=== PATIENT | female | born 1945 | race Caucasian/White ===

== ENCOUNTER 2023-08-27 11:04 | Inpatient (IN) | payer OTHER, SELFPAY ==
[2023-08-27] VITALS (12 sets, daily range): BP systolic 132–165; BP diastolic 58–79; BMI 21.9; BMI 22.9
--- NOTE | 2023-08-27 08:54 | ED.GENMED ---
History of Present Illness
General
Chief Complaint: Rectal Bleeding
Source: patient and ambulance crew
Exam Limitations: none
Time Seen by Provider: 08/27/23 08:52
Nursing documentation reviewed up to this point in time: agreed with
Travel History
Have you had any contact with someone who has COVID-19?: No
Do you have any symptoms of coronavirus? Fever > 100 degrees, chills, cough, shortness of breath, sore throat, loss of taste or smell, muscle aches, or headache?: No
History of Present Illness
History of Present Illness:
78-year-old female presents emergency department complaining of lower abdominal cramping, and dark maroon stool. She has a history of diverticular bleed. She does not take any blood thinners except for aspirin 81 mg.
Past History
Past History
ED Past Medical History: Arrthythmia, CHF, HTN and Other (Diverticular bleed)
ED Past Surgical History: Cardiac (watchman), Cholecystectomy and Orthopedic (left elbow, right rotator cuff, bilateral hip replacement)
Social History
Tobacco: Non-smoker
Alcohol: None
Drug: None
Employment: Retired
Review of Systems
Review of Systems
Allergies reviewed?: Yes
All Other Systems: Not applicable
Constitutional: Reports no symptoms
EENT: Reports no symptoms
Respiratory: Reports no symptoms
Cardiac: Reports no symptoms
ABD/GI: Reports bloody stools and black stools
: Reports no symptoms
Musculoskeletal: Reports no symptoms
Skin: Reports no symptoms
Neurological: Reports no symptoms
Endocrine: Reports no symptoms
Hematologic/Lymphatic: Reports no symptoms
Psychiatric: Reports no symptoms
Phy Exam
Physical Exam
Physical Exam:
Physical Exam
General: no apparent distress, not acutely ill
Neck: supple. no meningeal signs. normal posterior pharynx
Heart: s1/s2 regular rate and rhythm, no murmur. equal radial
pulses.
HEENT: Pupils equal round reactive to light, EOMI
Lungs: no acute respiratory distress. clear bilaterally
Abdomen: normal bowel sounds. not tender. no CVAT, rectal exam shows dark maroon blood
Neuro: alert and oriented. no focal neurological deficits cranial nerves II through XII intact
Skin: no rash
Psychiatric: well kept. interactive and cooperative
Extremities: no edema. no calf tenderness. negative homans. good distal pulses
Course
Orders/Labs/Results
Orders:
Orders
08/27/23 08:51
EKG [Electrocardiogram (*1)] Urgent
Reason for Study: Fatigue / Weakness
EKG- Treatment ONCE
08/27/23 08:52
Cardiac Monitoring- Treatment ONCE
EKG- Treatment ONCE
IV Insert/Care/Rem.- Treatment PRN
08/27/23 09:02
Type+Screen Urgent
Complete Blood Count/With Diff Urgent
Comprehensive Metabolic Panel Urgent
Ferritin Urgent
Comment: ADD ON
Folate Urgent
Comment: ADD ON
Iron Urgent
Comment: ADD ON
PTT Urgent
Prothrombin Time Urgent
Total Iron Binding Urgent
Comment: ADD ON
Transferrin [S] Urgent
Comment: ADD ON
Vitamin B12 Urgent
Comment: ADD ON
08/27/23 10:44
Admit/Transfer Patient As Directed
Co-Sign Provider:
Level of Care: Inpatient admission
Assign to:: Telemetry
Physician / Group: anthony castorena
Diagnosis: Acute GI bleed
Reason for Telemetry: Arrhythmia
Date to Stop Telemetry: 08/30/23
Time to Stop Telemetry: 11:00
Reason for Hospitalization: Acute GI bleed
Expected length of stay greater than two midnights?: Yes
ELOS- Estimated Length of Stay in days: 3
I certify the patient meets the requirements for IP care: Yes
08/27/23 10:49
Code Status As Directed
Resuscitation Status: Full Code
08/27/23 14:29
Furosemide [Lasix] 20 mg PO DAILYPRN PRN
Pantoprazole [Protonix IV] 40 mg IV BID
08/27/23 14:29
Consult Gastroenterology [GASTROINTESTINAL CONSULT] Routine
Consulting Provider: Constanza Medel
Was physician already notified: Yes
Activity As Directed
Activity Level: As Tolerated
Intake/ Output As Directed
Frequency: Per unit guidelines
Sequential Compression Device [Pneumatic Compression Sleeves] As Directed
Type: Knee high
Vital Signs As Directed
Frequency: Per unit guidelines
Weight As Directed
Frequency: Daily
Pulse Ox/spot Check [RESP] Routine
Quantity: 1
DX Deep Vein Thrombosis Video Routine
08/27/23 20:00
Acetaminophen [Tylenol] 1,000 mg PO BID
cyclosporine-chondroit sulf A [Cyclosporine in Klarity] 1 drop OPHTH BID
08/27/23 22:00
Losartan [Cozaar] 25 mg PO HS
08/28/23 06:00
Basic Metabolic Panel IN AM
Complete Blood Count/With Diff IN AM
08/28/23 08:00
MetroNIDAZOLE (NON-FORM) [Metrocream 0.75% Cream] 1 applic TOPICAL DAILY
08/28/23 10:44
clobetasol 1 applic TOPICAL MOFR
08/28/23 18:00
Rosuvastatin Calcium [Crestor] 5 mg PO Q48H
08/29/23 06:00
Basic Metabolic Panel IN AM
Complete Blood Count/With Diff IN AM
08/30/23 06:00
Basic Metabolic Panel IN AM
Complete Blood Count/With Diff IN AM
08/30/23 11:00
DC Protocol for Telemetry ONCE
08/31/23 06:00
Basic Metabolic Panel IN AM
Complete Blood Count/With Diff IN AM
09/01/23 06:00
Basic Metabolic Panel IN AM
Complete Blood Count/With Diff IN AM
Abnormal Lab Results
08/27/23
09:02
RBC 3.39 L 10^6/uL
(4.20-5.40)
Hgb 11.5 L g/dL
(12.0-16.0)
Hct 34.2 L %
(37.0-47.0)
MCV 100.9 H fL
(81.0-99.0)
MCH 33.9 H pg
(27.0-31.0)
Monocytes % 10.2 H %
(1.7-9.3)
Chloride 108 H mmol/L
(98-107)
BUN 26 H mg/dl
(7-17)
08/27/23 09:02
08/27/23 09:02
Vital Signs
Initial and Last Documented VS:
Initial Vital Signs
Temp Pulse Resp Pulse Ox
98.8 F 79 18 97
08/27/23 08:45 08/27/23 08:45 08/27/23 08:45 08/27/23 08:45
Last Documented Vital Signs
Temp Pulse Resp BP Pulse Ox
98.8 F 76 18 152/69 96
08/27/23 08:45 08/27/23 15:00 08/27/23 15:00 08/27/23 15:00 08/27/23 15:00
MDM/Problems Addressed
Differential Diagnosis Includes:
GI bleed, hemorrhoids
MDM/Problems Addressed:
78 yo female with GI bleed, vital signs stable, will admit for further evaluation.
Chronic conditions affecting care: Neurological disorder (prior cva) and Other (prior GI bleed)
Acute Exacerbation and/or Progression of Chronic Illness: Other (prior GI bleed)
*Pulse Oximetry
Patient hypoxic: no
*EKG
Interpreted by ED Provider?: Yes
EKG Intrepretation Date: 08/27/23
EKG Intrepretation Time: 08:53
Interpretation: abnormal
Comparison EKG: no changes
Heart Rate: 76
Rate: normal
Rhythm: atrial flutter
Stuart: normal axis
Interval: normal interval
QRS Pattern: right bundle branch block
Ischemia: non-specific ST changes
*Nuisance Wildlife Control Operator Interpretation
Rate: normal
Interpretation: abnormal
Heart Rate: 78
Rhythm: atrial flutter
*Critical Care Note
Total Time (30-74mins, 75-104mins- exclusive of procedures): Not Applicable
Patient Management
Social determinants of health affecting care: Living situation and Strong social support
Discussion with other providers: Hospitalist
Escalation/DeEscalation of care consider admission/obs:
admit indicated
ED Attending Note
-
Portions of this chart may have been created with voice recognition software.� Occasional wrong word or��sound alike� substitutions may have occurred due to the inherent limitations of voice recognition software.
Discharge Plan
Departure
Patient Disposition: Admit
Date of Disposition: 08/27/23
Time of Disposition: 09:32
Admit to: Telemetry
Presentation/result/management discussed w/ accepting MD/DO: Hospitalist
Patient with high blood pressure during this ER visit?: Yes
Condition: Good
Discharge Problem:
Acute GI bleeding
Interventions
Interventions:
*Risk Screen - Suicide Last Done: 08/27/23 08:45
*General Assessment Last Done: 08/27/23 08:45
*Neglect/Abuse Screening Last Done: 08/27/23 08:45
ED- Fall Risk Assessment Last Done: 08/27/23 08:45
*ED COVID-19 Vaccine History Last Done: 08/27/23 08:45
JA-Bywwbb-Yaofkalkxd Assessment Last Done: 08/27/23 08:45
ED- Cardiac Assessment Last Done: 08/27/23 08:45
ED- Pulmonary Assessment Last Done: 08/27/23 08:45
[2023-08-27 09:14] LABS: % Basophils 0.8 % (0-2); % Eosinophils 2.4 % (0-6); % Immature Granulocytes 0.2 % (0-0.5); % Lymphocytes 31.4 % (20.5-51.1); % Monocytes 10.2 % (1.7-9.3); Absolute Eosinophils 0.1 10^3/uL (0-0.7); Absolute Lymphocytes 1.5 10^3/uL (1.2-3.4); Absolute Monocytes 0.5 10^3/uL (0.1-0.6); Absolute Neutrophils 2.7 10^3/uL (1.4-6.5); Hematocrit 34.2 % (37.0-47.0); Hemoglobin 11.5 g/dL (12.0-16.0); Mean Corp Hgb Conc. 33.6 g/dL (33.0-37.0); Mean Corpuscular Hgb 33.9 pg (27.0-31.0); Mean Corpuscular Volume 100.9 fL (81.0-99.0); Mean Platelet Volume 8.9 fL (7.4-10.4); Nucleated Red Blood Cells % 0 %; Platelet Count 139 10^3/uL (130-400); Red Blood Cell Count 3.39 10^6/uL (4.20-5.40); White Blood Cell Count 4.9 10^3/uL (4.8-10.8)
[2023-08-27 09:28] LABS: APTT 29.1 Sec (23.4-35.0); INR 1.11; PT 14.4 Sec (11.4-14.6)
[2023-08-27 09:31] LABS: ALT (SGPT) 22 U/L (0-35); AST (SGOT) 30 U/L (14-36); Alkaline Phosphatase 126 U/L (38-126); Blood Urea Nitrogen 26 mg/dl (7-17); Calcium 9.7 mg/dl (8.4-10.2); Carbon Dioxide 29 mmol/L (22-30); Chloride 108 mmol/L (98-107); Estimated Creatinine Clearance 65 ml/min; Glucose 95 mg/dl (70-99); Sodium 139 mmol/L (135-145); Total Bilirubin 0.9 mg/dl (0.2-1.3); Total Protein 6.5 g/dl (6.3-8.2); eGFR > 60.00
--- NOTE | 2023-08-27 10:52 | HPS.HSE ---
Family Physician
-
Family Physician: Jeramie Spring
Chief Complaint
-
Rectal bleeding
History of Present Illness
78-year-old female with past medical history of pulmonary atrial fibrillation, CHF, TIA, hypertension, previous GI bleed, essential hypertension, status post Watchman device came to the hospital with GI bleeding that started today. Patient was
admitted here last year with diverticular bleed. Currently complaining of dizziness and passing black and dark burgundy stool. Denies any abdominal pain. Denies any nausea, vomiting. Denies any chest pain, shortness of breath.
Medical History
Past Medical History
Past Medical History: Reports Arrhythmia (Pulm atrial fibrillation), CHF, CVA, HTN, Hypercholesterolemia and Other (GI bleed)
Past Surgical History: Reports Cardiac (Watchman device, a flutter ablation), Cholecystectomy, Orthopedic (Bilateral hip replacement) and Other (Cataract surgery)
Social History
Tobacco: Former Smoker
Alcohol: None
Drug: None
Family History
Family History: Not pertinent
Allergies / Home Medications
Allergies reflects when Allergies were last updated in [employer].
Home Medications with original date entered in [employer]
Allergy/Medication List:
Allergies
Allergy/AdvReac Type Severity Reaction Status Date / Time
alendronate sodium Allergy GI bleed Verified 08/27/23 09:05
[From Fosamax]
simvastatin [From Zocor] Allergy Unknown Verified 08/27/23 09:05
Home Medications
acetaminophen 500 mg tablet 1,000 mg PO BID Pain 01/08/22
cyclosporine 0.1 %-chondroitin sulfate A sodium 0.25 % eye drops (Cyclosporine in Klarity) 1 drp ophthalmic (eye) BID Eye condition 01/08/22
pantoprazole 40 mg tablet,delayed release 40 mg PO DAILY Gastrointestinal issue 01/08/22
rosuvastatin 5 mg tablet 5 mg PO Q48H@1800 High cholesterol 01/08/22
metronidazole 0.75 % topical cream 1 applic topical DAILY FACE ROSACEA 09/06/22
aspirin 81 mg chewable tablet 81 mg PO DAILY 08/27/23
clobetasol 0.05 % topical ointment 1 applic topical MOFR VUVLAR RASH 08/27/23
furosemide 20 mg tablet 20 mg PO DAILYPRN PRN weight gain, leg swelling 08/27/23
losartan 25 mg tablet 25 mg PO HS 08/27/23
Review of Systems
-
History Source: Patient
A 12 point ROS was completed and negative except as noted: Yes
Abdomen/GI: Reports Black Stools
Physical Exam
Vital Signs
Vital Signs
Temp Pulse Resp BP Pulse Ox
98.8 F 64 13 154/68 94
08/27/23 08:45 08/27/23 10:00 08/27/23 10:00 08/27/23 10:00 08/27/23 10:00
Physical Exam
General: Well Nourished and No Apparent Distress
HEENT: Anicteric and Moist mucous membranes
Respiratory: Clear and Non Labored Respirations; No Wheezes
Cardiac: S1/S2 and Irregular Rhythm
Breast: Deferred by me
GI: Soft, Non Tender and Non Distended
Genito-urinary: No Jon
Musculoskeletal: No Edema
Neuro: Awake, Alert, Oriented and AO x 3
Psych: Calm and Intact Judgment/Insight
Laboratory Results
-
08/27/23 09:02
08/27/23 09:02
Laboratory Results
PT 14.4 Sec (11.4-14.6) 08/27/23 09:02
INR 1.11 08/27/23 09:02
APTT 29.1 Sec (23.4-35.0) 08/27/23 09:02
Total Bilirubin 0.9 mg/dl (0.2-1.3) 08/27/23 09:02
AST 30 U/L (14-36) 08/27/23 09:02
ALT 22 U/L (0-35) 08/27/23 09:02
Alkaline Phosphatase 126 U/L (38-126) 08/27/23 09:02
Data Reviewed
-
Lab Data: Labs Reviewed by me and Discussed with Patient
Impression/Plan
-
Acute GI bleed
History of GI bleed
Trend hemoglobin
Blood consented and placed in chart
Transfuse hemoglobin less than 7
Consult GI
PPI
N.p.o.
Permanent atrial fibrillation status post Watchman device
Not on anticoagulation due to history of GI bleed
On baby aspirin, hold
Not on any rate control
History of hypertension
Continue losartan
History of cirrhosis
Follow-up with GI outpatient
Hyperlipidemia
Continue statin
hx of TIA
DVTppx
SCD's
Full code
--- NOTE | 2023-08-27 11:01 | CON.GI ---
Addendum entered and electronically signed by Constanza Medel MD 08/27/23 14:52:
I saw and examined the patient.
The ONLINE USER EXPERIENCE STRATEGIST's note was reviewed and I agree with the note.
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
angioectasia but her bleeding did resolve and so did not need endoscopic procedures performed here. She has been seeing Dr. Mai and then subsequently Dr. Montalvo and and her last colonoscopy she says was in 2021 which was unremarkable with
Dr. Stahl and she then had a capsule endoscopy recently with Dr. Marks and she says that that showed old blood in the stomach she says her last endoscopy was quite a few years ago. She was also noted to have cirrhosis on prior imaging study and was
told to follow-up with her outpatient GI for further workup.
Assessment and plan 1 recurrent GI bleed this time she presents with black stool with subsequently with some red blood will need to rule out upper GI bleed possibly from gastric or small bowel angioectasias she has a slightly elevated BUN will
schedule her for endoscopy and if that is unremarkable then will need a repeat colonoscopy for possible colonic angioectasia as noted on CTA in the past there was questionable cecal AVM also. Hemoglobin is relatively stable currently she was only
on aspirin 81 mg prior to admission she is status post Watchman procedure. She does have prior history of diverticular bleed also.
2. Cirrhosis noted on prior imaging follow-up with as outpatient for further workup
Original Note:
Consultation
-
Date/Time Consultation Requested: 08/27/23 1100
Date/Time Consultation Performed: 08/27/23 1100
Requesting Provider: Yaya Rodriguez MD
Performing Provider: BHANU Beaulieu, Constanza Medel MD
Reason for Consultation: GI bleed
Medical History
Chief Complaint / HPI
Chief Complaint: GI bleed
History of Present Illness:
Pt is an 78yo presents with hx afib with prior ablation, watchman off anticoagulation, TIA, HTN, and spinal stenosis, CT with noted cirrhosis. She also has hx multiple GI bleeds. 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
cauterization around 2014. Colonoscopy Dr. Montalvo with diverticulosis. Capsule incomplete and did not pass with HH. She was then admitted to in 2022 with diverticular bleed vs possible small focal AVM gastric wall vs IC valve also noted
change of cirrhosis. She states after admission she did she Dr. Marks in 2022 with abnormality in stomach. She now present with onset of dizziness and passing black and dark burgundy stool with some formed stool. She had several episode at home
and presents to ER for evaluation. On admission hbg 11.5 with dark maroon stool on rectal exam in ER.
Pt otherwise admits to occasional constipation but denies dysphagia, GERD, nausea, vomiting, abdominal pain, diarrhea or bright red blood.
Past Medical History
Past Medical History: Arrhythmias (afib, bradicardia ), CHF, CVA (prior TIA), HTN and Other (diverticular bleed, diverticulosis, HH with incomplete capusule, possible AVM gastric and IC vlave on CT 2022, hx prior gastric angioectasia with
cauterization by Dr. Mai in past, cirrhosis spinal stenosis, Lumbar DDD, possible LING, cirrhosis per CT)
Past Surgical History: Cardiac (watchman, aflutter ablation), Cholecystectomy, Orthopedic (elbow, right rotator cuff, b/l hip replacement ) and Other (cararact surgery)
Social History
Tobacco: Former Smoker
Alcohol: Other (prior social )
Drug: None
Living: Alone
Employment: Retired
Family History
Family History: Other (mother with colon CA in mother )
Allergies / Home Medications
Allergy/AdvReac Type Severity Reaction Status Date / Time
alendronate sodium Allergy GI bleed Verified 08/27/23 09:05
[From Fosamax]
simvastatin [From Zocor] Allergy Unknown Verified 08/27/23 09:05
Medication Instructions Recorded
acetaminophen 500 mg tablet 1,000 mg PO BID Pain 01/08/22
cyclosporine 0.1 %-chondroitin 1 drp ophthalmic (eye) BID Eye 01/08/22
sulfate A sodium 0.25 % eye drops condition
(Cyclosporine in Klarity)
pantoprazole 40 mg tablet,delayed 40 mg PO DAILY Gastrointestinal 01/08/22
release issue
rosuvastatin 5 mg tablet 5 mg PO Q48H@1800 High cholesterol 01/08/22
metronidazole 0.75 % topical cream 1 applic topical DAILY FACE ROSACEA 09/06/22
aspirin 81 mg chewable tablet 81 mg PO DAILY 08/27/23
clobetasol 0.05 % topical ointment 1 applic topical MOFR VUVLAR RASH 08/27/23
furosemide 20 mg tablet 20 mg PO DAILYPRN PRN weight gain, 08/27/23
leg swelling
losartan 25 mg tablet 25 mg PO HS 08/27/23
Review of Systems
-
History Source: Patient
Constitutional: Reports No Symptoms
EENT: Reports No Symptoms
Respiratory: Reports No Symptoms
Cardiac: Reports No Symptoms
Abdomen/GI: Reports Bloody Stools (dark burgundy/black stool)
: Reports No Symptoms
Musculoskeletal: Reports No Symptoms
Skin: Reports No Symptoms
Neurological: Reports No Symptoms
Endocrine: Reports No Symptoms
Hematologic/Lymphatic: Reports Bleeding
Vital Signs
Temp Pulse Resp BP Pulse Ox
98.8 F 64 13 154/68 94
08/27/23 08:45 08/27/23 10:00 08/27/23 10:00 08/27/23 10:00 08/27/23 10:00
Physical Exam
Exam
General: Well Developed, Well Nourished and No Apparent Distress
HEENT: Normocephalic and Anicteric
Respiratory: Clear
Cardiac: Regular Rhythm
GI: Soft, Non Tender and Non Distended
Rectal: Other (burgundy stool per ER)
Musculoskeletal: No Clubbing and No Cyanosis
Skin: Warm and Dry
Neuro: Awake, Alert and AO x 3
Psych: Calm
Results
WBC 4.9 10^3/uL (4.8-10.8) 08/27/23 09:02
Hgb 11.5 g/dL (12.0-16.0) L 08/27/23 09:02
Hct 34.2 % (37.0-47.0) L 08/27/23 09:02
MCV 100.9 fL (81.0-99.0) H 08/27/23 09:02
Plt Count 139 10^3/uL (130-400) 08/27/23 09:02
Absolute Neuts (auto) 2.7 10^3/uL (1.4-6.5) 08/27/23 09:02
PT 14.4 Sec (11.4-14.6) 08/27/23 09:02
INR 1.11 08/27/23 09:02
APTT 29.1 Sec (23.4-35.0) 08/27/23 09:02
Sodium 139 mmol/L (135-145) 08/27/23 09:02
Potassium 4.0 mmol/L (3.5-5.1) 08/27/23 09:02
Chloride 108 mmol/L (98-107) H 08/27/23 09:02
Carbon Dioxide 29 mmol/L (22-30) 08/27/23 09:02
BUN 26 mg/dl (7-17) H 08/27/23 09:02
Creatinine 0.6 mg/dL (0.6-1.0) 08/27/23 09:02
Calcium 9.7 mg/dl (8.4-10.2) 08/27/23 09:02
Total Bilirubin 0.9 mg/dl (0.2-1.3) 02/29/24 09:02
AST 30 U/L (14-36) 08/27/23 09:02
ALT 22 U/L (0-35) 08/27/23 09:02
Alkaline Phosphatase 126 U/L (38-126) 08/27/23 09:02
Diagnostic Image Results:
09/07/22 CT P/P angio
No acute intraluminal gastrointestinal hemorrhage. Reviewed with Dr. Pugh at 8:30 AM on 09/07/2022.
Subtle nodularity of the hepatic surface, which could suggest the possibility of cirrhosis. Clinical correlation recommended.
Prior cholecystectomy. Likely prominent common bile duct, likely related to prior cholecystectomy and patient age.
Diverticulosis without acute diverticulitis.
Localized rounded prominence along left lateral vaginal margin are nonspecific. Possibly complex Bartholin's gland cyst.
Upon further review, there is a cluster of enhancing vascular structures involving the posterior-medial gastric wall in the fundal region (image 19 through 25 series 501). These raise the possibility of small focal AVM versus angiodysplasia.
Small enhancing vessel associated with the cecum adjacent to the ileocecal valve (image 75 series 501). Cannot exclude angiodysplasia.
Prior GI Procedures:
EGD: with Dr. Mai with gastric AVM cauterization around 2014.
Colonoscopy: Dr. Montalvo with diverticulosis
RENZO capsule did not pass around [address] Marks 09/2022 capsule - stomach old blood no masses, polyps, colon visualized normal
Assessment / Plan
-
Pt is an 78yo presents with hx afib with prior ablation, watchman off anticoagulation, TIA, HTN, and spinal stenosis, CT with noted cirrhosis. She also has hx multiple GI bleeds. 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
cauterization around 2014. Colonoscopy Dr. Montalvo with diverticulosis. Capsule incomplete and did not pass with . She was then admitted to in 2022 with diverticular bleed vs possible small focal AVM gastric wall vs IC valve also noted
change of cirrhosis. She states after admission she did she Dr. Vaze in 2022 with abnormality in stomach. She now present with onset of dizziness and passing black and dark burgundy stool with some formed stool. She had several episode at home
and presents to ER for evaluation. On admission hbg 11.5, BUN 26 with dark maroon stool on rectal exam in ER.
-GI bleed-- upper vs lower source with maroon stool
-hx multiple GI bleed
-macrocytic anemia
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
-diverticulosis
-changes of cirrhosis on prior CT
-prior thrombocytopenia
other medical problems:
-Afib off AC
-prior ablation
-s/p watchman
-TIA
-HTN
-spinal stenosis
PLAN:
etiology of bleeding related to gastric ? AVM, IC valve AVM as noted on prior Ct and capsule vs other
trend stool record and hbg
if increase bleeding consider CTA vs EGD/colon
transfuse as needed
NPO
OP follow up for cirrhosis with [facility] vs Dr. Marks
-
-
Thank you for consultation and allowing me to participate in the patient's care. Please call the circulation analyst GI physician during the after hours with any questions or concerns.
[2023-08-27 14:39] LABS: Iron 98 ug/dl (37-170)
[2023-08-27] MEDS: PROTONIX IV 40 MG IV ×2 (14:45→20:33)
[2023-08-27 14:49] LABS: Percent Saturation 30 % (20-50); Total Iron Binding Capacity 325 ug/dl (265-497)
[2023-08-27 15:42] LABS: Ferritin 34.2 ng/ml (11.1-264.0)
[2023-08-27 16:13] LABS: Folate 19.8 ng/ml (2.76-20); Vitamin B12 427 pg/ml (239-931)
[2023-08-27] MEDS: NON-FORMULARY ITEM 1 DROP OPHTH (20:32)
[2023-08-27] MEDS: TYLENOL 1000 MG PO (20:32)
[2023-08-27] MEDS: NSS (PRESERVATIVE FREE) 10 ML IV (20:36)
[2023-08-27] MEDS: COZAAR 25 MG PO (21:49)
[2023-08-28] VITALS (8 sets, daily range): BP systolic 113–148; BP diastolic 51–72; BMI 22.7
[2023-08-28] MEDS: ZOFRAN 4 MG IV (02:45)
[2023-08-28 02:50] LABS: % Basophils 0.9 % (0-2); % Eosinophils 2.6 % (0-6); % Immature Granulocytes 0.2 % (0-0.5); % Lymphocytes 37.4 % (20.5-51.1); % Monocytes 9.5 % (1.7-9.3); % Neutrophils 49.4 % (42.2-75.2); Absolute Eosinophils 0.1 10^3/uL (0-0.7); Absolute Lymphocytes 1.6 10^3/uL (1.2-3.4); Absolute Monocytes 0.4 10^3/uL (0.1-0.6); Absolute Neutrophils 2.1 10^3/uL (1.4-6.5); Hematocrit 27.7 % (37.0-47.0); Hemoglobin 9.4 g/dL (12.0-16.0); Mean Corp Hgb Conc. 33.9 g/dL (33.0-37.0); Mean Corpuscular Hgb 33.2 pg (27.0-31.0); Mean Corpuscular Volume 97.9 fL (81.0-99.0); Mean Platelet Volume 8.5 fL (7.4-10.4); Nucleated Red Blood Cells % 0 %; Platelet Count 114 10^3/uL (130-400); Red Blood Cell Count 2.83 10^6/uL (4.20-5.40); Red Cell Dist. Width 12.9 % (11.5-14.5); White Blood Cell Count 4.2 10^3/uL (4.8-10.8)
--- NOTE | 2023-08-28 02:58 | PTCARENOTE ---
Pt c/o dizziness and nausea. Pt repeatedly stating 'somethings wrong'. Pt having black/burgundy stools throughout shift (see worklist). FINANCIAL INSTITUTION TREASURERKIM Maier notified, stat CMP and CBC ordered. PRN zofran ordered and given (see mar). Hgb dropped from 11.5
to 9.4. FINANCIAL INSTITUTION TREASURER made aware. Q6H H&H ordered. continuing plan of care.
[2023-08-28 03:13] LABS: ALT (SGPT) 17 U/L (0-35); AST (SGOT) 25 U/L (14-36); Alkaline Phosphatase 87 U/L (38-126); Blood Urea Nitrogen 22 mg/dl (7-17); Calcium 9.7 mg/dl (8.4-10.2); Carbon Dioxide 28 mmol/L (22-30); Chloride 105 mmol/L (98-107); Estimated Creatinine Clearance 56 ml/min; Glucose 127 mg/dl (70-99); Potassium 3.8 mmol/L (3.5-5.1); Sodium 138 mmol/L (135-145); Total Bilirubin 1.1 mg/dl (0.2-1.3); Total Protein 5.6 g/dl (6.3-8.2); eGFR > 60.00
[2023-08-28] MEDS: TYLENOL PO (07:39)
[2023-08-28] MEDS: NON-FORMULARY ITEM 1 DROP OPHTH ×2 (10:16→20:05)
[2023-08-28] MEDS: PROTONIX IV 40 MG IV ×2 (10:16→20:06)
[2023-08-28] MEDS: NSS (PRESERVATIVE FREE) 10 ML IV ×2 (10:17→20:06)
[2023-08-28] MEDS: FLUSH (NSS) 2 FLUSH IV (10:19)
[2023-08-28 11:15] LABS: Hematocrit 28.4 % (37.0-47.0); Hemoglobin 9.3 g/dL (12.0-16.0)
--- NOTE | 2023-08-28 11:25 | W.PN.HOSP.TC ---
Today's Communication/Plan
-
monitor vitals
see plan
cw clears
monitor hgb
GI following
Assessment / Plan
Assessment / Plan
General: Well Nourished and No Apparent Distress
HEENT: Anicteric and Moist mucous membranes
Respiratory: Clear and Non Labored Respirations; No Wheezes
Cardiac: S1/S2 and Irregular Rhythm
GI: Soft, Non Tender and Non Distended
Genito-urinary: No Jon
Musculoskeletal: No Edema
Neuro: Awake, Alert, Oriented and AO x 3
Psych: Calm and Intact Judgment/Insight
Acute GI bleed
Acute blood loss anemia 2/2 above
History of GI bleed
Trend hemoglobin; now 9.3
Transfuse hemoglobin less than 7
GI following
PPI
clears
s/p EGD 08/27 multiple gastric polyps, duodenal diverticulum. No bleeding noted
Permanent atrial fibrillation status post Watchman device
Not on anticoagulation due to history of GI bleed
On baby aspirin, hold, restart when ok with
Not on any rate control
History of hypertension
Continue losartan
History of cirrhosis
Follow-up with GI outpatient
Hyperlipidemia
Continue statin
hx of TIA
DVTppx
SCD's
Full code
Anticipated Discharge: 24 - 48 hours
Subjective/Interval History
-
Date of Service: August 28, 2023
denies pain
Objective Data
-
Labs:
Laboratory Results
08/28/23 08/28/23 08/28/23
02:45 06:00 10:27
WBC 4.2 L Cancelled
Hgb 9.4 L Cancelled 9.3 L
Hct 27.7 L Cancelled 28.4 L
Plt Count 114 L Cancelled
Sodium 138 Cancelled
Potassium 3.8 Cancelled
Chloride 105 Cancelled
Carbon Dioxide 28 Cancelled
BUN 22 H Cancelled
Creatinine 0.6 Cancelled
Glucose 127 H Cancelled
Calcium 9.7 Cancelled
Total Bilirubin 1.1
AST 25
ALT 17
Alkaline Phosphatase 87
08/28/23 08/28/23
15:00 21:00
WBC
Hgb Pending Pending
Hct Pending Pending
Plt Count
Sodium
Potassium
Chloride
Carbon Dioxide
BUN
Creatinine
Glucose
Calcium
Total Bilirubin
AST
ALT
Alkaline Phosphatase
Vital Signs:
Vital Signs
Temp Pulse Resp BP Pulse Ox
97.8 F 59 13 126/64 99
08/28/23 10:00 08/28/23 10:00 08/28/23 10:00 08/28/23 10:00 08/28/23 10:00
I&O
08/27/23 08/28/23 08/29/23
06:59 06:59 06:59
Intake Total 840 / 840
Balance 840 / 840
--- NOTE | 2023-08-28 12:05 | PN.CDI ---
CDI
- -
CDI:
Physician Documentation Request
Admit Date: 08/27/23 11:04
Dear Doctor Michael,
Patient admitted for acute GI bleed.
Patient takes aspirin , which is held.
Please clarify if a relationship exist between these conditions:
Yes, GI bleed is related to/associated with/due to/exacerbated by aspirin.
No, GI bleed is not related to/associated with/due to/exacerbated by aspirin.
Unable to determine
Use of terms such as suspected, likely, concern for, or probable (associated with a specific diagnosis that is being evaluated, monitored, or treated as if it exists) are acceptable and can be coded in the inpatient setting, when documented at the
time of discharge.
Thank you,
Jo Nava RN, BSN
CDI Specialist
tiger text
Please use your independent medical judgment in providing your response.
[2023-08-28 17:03] LABS: Hematocrit 28.3 % (37.0-47.0); Hemoglobin 9.6 g/dL (12.0-16.0)
[2023-08-28] MEDS: CRESTOR 5 MG PO (17:10)
--- NOTE | 2023-08-28 19:37 | CM ---
met with patient who lives at [facility].she has 2 steps to enter,her bed and bath is on the second level,she amb with a cane,does not use her walker since she fx her left arm in past.she is I with her adl's.her pcp is dr mata and
she uses [facility] in [place].patient is adm with gi bleed.she has uses [facility] home care in past.she is not sure she will need home care when discharged home.
Pln home with no needs vs home with hcs.
[2023-08-28] MEDS: TYLENOL 1000 MG PO (20:06)
[2023-08-28] MEDS: COZAAR 25 MG PO (21:38)
[2023-08-28 21:39] LABS: Hematocrit 25.6 % (37.0-47.0); Hemoglobin 8.7 g/dL (12.0-16.0)
[2023-08-29 02:03] LABS: Hemoglobin 8.3 g/dL (12.0-16.0)
[2023-08-29 03:35] VITALS: BP 123/57
[2023-08-29 05:26] VITALS: BMI 22.5
[2023-08-29 06:17] LABS: % Basophils 0.8 % (0-2); % Eosinophils 3.1 % (0-6); % Immature Granulocytes 0.3 % (0-0.5); % Lymphocytes 30.6 % (20.5-51.1); % Monocytes 11.7 % (1.7-9.3); % Neutrophils 53.5 % (42.2-75.2); Absolute Eosinophils 0.1 10^3/uL (0-0.7); Absolute Lymphocytes 1.2 10^3/uL (1.2-3.4); Absolute Monocytes 0.5 10^3/uL (0.1-0.6); Absolute Neutrophils 2.1 10^3/uL (1.4-6.5); Hematocrit 27.4 % (37.0-47.0); Hemoglobin 9.1 g/dL (12.0-16.0); Mean Corp Hgb Conc. 33.2 g/dL (33.0-37.0); Mean Corpuscular Volume 99.3 fL (81.0-99.0); Nucleated Red Blood Cells % 0 %; Platelet Count 124 10^3/uL (130-400); Red Blood Cell Count 2.76 10^6/uL (4.20-5.40); Red Cell Dist. Width 13.2 % (11.5-14.5); White Blood Cell Count 3.9 10^3/uL (4.8-10.8)
[2023-08-29 06:37] LABS: Blood Urea Nitrogen 15 mg/dl (7-17); Calcium 9.6 mg/dl (8.4-10.2); Carbon Dioxide 28 mmol/L (22-30); Chloride 106 mmol/L (98-107); Estimated Creatinine Clearance 42 ml/min; Glucose 88 mg/dl (70-99); Sodium 136 mmol/L (135-145); eGFR > 60.00
[2023-08-29 07:00] VITALS: BP 122/57
[2023-08-29] MEDS: PROTONIX IV 40 MG IV ×2 (08:02→19:36)
[2023-08-29] MEDS: NSS (PRESERVATIVE FREE) 10 ML IV ×2 (08:02→19:35)
[2023-08-29] MEDS: NON-FORMULARY ITEM 2 DROP OPHTH (08:03)
[2023-08-29] MEDS: TYLENOL 1000 MG PO ×2 (08:03→19:36)
[2023-08-29 11:00] VITALS: BP 124/48
--- NOTE | 2023-08-29 11:32 | W.PN.HOSP.TC ---
Today's Communication/Plan
-
monitor vitals
see plan
cw clears per GI
monitor hgb
restart ASA when ok with GI
Assessment / Plan
Assessment / Plan
General: Well Nourished and No Apparent Distress
HEENT: Anicteric and Moist mucous membranes
Respiratory: Clear and Non Labored Respirations; No Wheezes
Cardiac: S1/S2 and Irregular Rhythm
GI: Soft, Non Tender and Non Distended
Genito-urinary: No Jon
Musculoskeletal: No Edema
Neuro: Awake, Alert, Oriented and AO x 3
Psych: Calm and Intact Judgment/Insight
Acute GI bleed
Acute blood loss anemia 2/2 above
do not believe her bleeding is exacerbated by baby aspirin
History of GI bleed
Trend hemoglobin; now 9.1
Transfuse hemoglobin less than 7
GI following
PPI
clears
s/p EGD 08/27 multiple gastric polyps, duodenal diverticulum. No bleeding noted. plan for possible colon wednesday 08/30
Permanent atrial fibrillation status post Watchman device
Not on anticoagulation due to history of GI bleed
On baby aspirin, hold, restart when ok with GI
Not on any rate control
History of hypertension
Continue losartan
History of cirrhosis
Follow-up with GI outpatient
Hyperlipidemia
Continue statin
hx of TIA
DVTppx
SCD's
Full code
Anticipated Discharge: 24 - 48 hours
Subjective/Interval History
-
Date of Service: August 29, 2023
denies pain
Objective Data
-
Labs:
Laboratory Results
08/29/23 08/29/23
01:45 05:34
WBC 3.9 L
Hgb 8.3 L 9.1 L
Hct 27.4 L
Plt Count 124 L
Sodium 136
Potassium 4.0
Chloride 106
Carbon Dioxide 28
BUN 15
Creatinine 0.8
Glucose 88
Calcium 9.6
Vital Signs:
Vital Signs
Temp Pulse Resp BP Pulse Ox
97.8 F 61 16 122/57 97
08/29/23 07:00 08/29/23 07:00 08/29/23 07:00 08/29/23 07:00 08/29/23 07:00
I&O
08/28/23 08/29/23 08/30/23
06:59 06:59 06:59
Intake Total 840 / 840 780 / 780
Balance 840 / 840 780 / 780
--- NOTE | 2023-08-29 13:55 | W.PN.GI.CBS2 ---
Today's Communication / Plan
-
colonoscopy
Assessment / Plan
-
Pt is an 78yo presents with hx afib with prior ablation, watchman off anticoagulation, TIA, HTN, and spinal stenosis, CT with noted cirrhosis. She also has hx multiple GI bleeds. 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
cauterization around 2014. Colonoscopy Dr. Montalvo with diverticulosis. Capsule incomplete and did not pass with . She was then admitted to in 2022 with diverticular bleed vs possible small focal AVM gastric wall vs IC valve also noted
change of cirrhosis. She states after admission she did she Dr. Marks in 2022 with abnormality in stomach. She now present with onset of dizziness and passing black and dark burgundy stool with some formed stool. She had several episode at home
and presents to ER for evaluation. On admission hbg 11.5, BUN 26 with dark maroon stool on rectal exam in ER.
-GI bleed-- upper vs lower source with maroon stool
-hx multiple GI bleed
-macrocytic anemia
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
-diverticulosis
-changes of cirrhosis on prior CT
-prior thrombocytopenia
other medical problems:
-Afib off AC
-prior ablation
-s/p watchman
-TIA
-HTN
-spinal stenosis
PLAN:
egd negative, will do colonoscopy thursday
clear liquids and prep tomorrow
monitor hgb which is stable now
outpt f/u of cirrhosis
Subjective
Subjective
Date of Service: August 29, 2023
Pt w/o bleeding, abd pain
Objective
Data Reviewed
Laboratory Data:
Laboratory Results
08/29/23 05:34
08/29/23 05:34
Laboratory Results
PT 14.4 Sec (11.4-14.6) 08/27/23 09:02
INR 1.11 08/27/23 09:02
APTT 29.1 Sec (23.4-35.0) 08/27/23 09:02
Total Bilirubin 1.1 mg/dl (0.2-1.3) 08/28/23 02:45
AST 25 U/L (14-36) 08/28/23 02:45
ALT 17 U/L (0-35) 08/28/23 02:45
Alkaline Phosphatase 87 U/L (38-126) 08/28/23 02:45
Vital Signs and I&O:
Vital Signs
Temp Pulse Resp BP Pulse Ox
97.6 F 60 16 124/48 94
08/29/23 11:00 08/29/23 11:00 08/29/23 11:00 08/29/23 11:00 08/29/23 11:00
I&O
08/28/23 08/29/23 08/30/23
06:59 06:59 06:59
Intake Total 840 / 840 780 / 780
Balance 840 / 840 780 / 780
Physical Exam
Physical Exam
GI: Soft, Non Distended and Non Tender
[2023-08-29 14:15] LABS: Transferrin 258 mg/dL (200-360)
--- NOTE | 2023-08-29 14:59 | PTCARENOTE ---
pt with multiple BM with bright red clots. patient is asymptomatic. VS WNL. GI and hospitalist notified via TT. Will continue to monitor.
[2023-08-29 15:13] LABS: Hematocrit 26.4 % (37.0-47.0); Hemoglobin 8.8 g/dL (12.0-16.0)
[2023-08-29 16:00] VITALS: BP 115/50
[2023-08-29] MEDS: NON-FORMULARY ITEM 1 DROP OPHTH (19:35)
[2023-08-29 19:37] VITALS: BP 133/53
[2023-08-29] MEDS: COZAAR 25 MG PO (20:59)
[2023-08-29 23:03] VITALS: BP 134/61
[2023-08-30 03:30] VITALS: BP 127/55
[2023-08-30 06:00] VITALS: BMI 22.5
[2023-08-30 06:27] LABS: % Basophils 0.8 % (0-2); % Eosinophils 3.1 % (0-6); % Immature Granulocytes 0.3 % (0-0.5); % Lymphocytes 28.6 % (20.5-51.1); % Monocytes 13.6 % (1.7-9.3); % Neutrophils 53.6 % (42.2-75.2); Absolute Eosinophils 0.1 10^3/uL (0-0.7); Absolute Monocytes 0.5 10^3/uL (0.1-0.6); Absolute Neutrophils 1.9 10^3/uL (1.4-6.5); Hemoglobin 8.7 g/dL (12.0-16.0); Mean Corp Hgb Conc. 33.5 g/dL (33.0-37.0); Mean Corpuscular Volume 98.5 fL (81.0-99.0); Mean Platelet Volume 8.9 fL (7.4-10.4); Nucleated Red Blood Cells % 0 %; Platelet Count 125 10^3/uL (130-400); Red Blood Cell Count 2.64 10^6/uL (4.20-5.40); Red Cell Dist. Width 13.1 % (11.5-14.5); White Blood Cell Count 3.6 10^3/uL (4.8-10.8)
[2023-08-30 06:50] LABS: Blood Urea Nitrogen 14 mg/dl (7-17); Calcium 9.3 mg/dl (8.4-10.2); Carbon Dioxide 28 mmol/L (22-30); Chloride 107 mmol/L (98-107); Estimated Creatinine Clearance 56 ml/min; Glucose 91 mg/dl (70-99); Potassium 3.7 mmol/L (3.5-5.1); Sodium 136 mmol/L (135-145); eGFR > 60.00
[2023-08-30 07:00] VITALS: BP 120/58
[2023-08-30] MEDS: NSS (PRESERVATIVE FREE) 10 ML IV ×2 (07:38→20:29)
[2023-08-30] MEDS: NON-FORMULARY ITEM 1 DROP OPHTH ×2 (07:38→20:27)
[2023-08-30] MEDS: PROTONIX IV 40 MG IV ×2 (07:38→20:29)
[2023-08-30] MEDS: ASPIR LOW (ENTERIC COATED) 81 MG PO (07:38)
[2023-08-30] MEDS: TYLENOL 1000 MG PO ×2 (07:39→20:29)
[2023-08-30 09:04] VITALS: BMI 22.5
--- NOTE | 2023-08-30 09:16 | W.PN.GI.CBS2 ---
Today's Communication / Plan
-
colonoscopy tomorrow
Assessment / Plan
-
Pt is an 78yo presents with hx afib with prior ablation, watchman off anticoagulation, TIA, HTN, and spinal stenosis, CT with noted cirrhosis. She also has hx multiple GI bleeds. 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
cauterization around 2014. Colonoscopy Dr. Montalvo with diverticulosis. Capsule incomplete and did not pass with . She was then admitted to in 2022 with diverticular bleed vs possible small focal AVM gastric wall vs IC valve also noted
change of cirrhosis. She states after admission she did she Dr. Marks in 2022 with abnormality in stomach. She now present with onset of dizziness and passing black and dark burgundy stool with some formed stool. She had several episode at home
and presents to ER for evaluation. On admission hbg 11.5, BUN 26 with dark maroon stool on rectal exam in ER.
-GI bleed-- upper vs lower source with maroon stool
-hx multiple GI bleed
-macrocytic anemia
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
-diverticulosis
-changes of cirrhosis on prior CT
-prior thrombocytopenia
other medical problems:
-Afib off AC
-prior ablation
-s/p watchman
-TIA
-HTN
-spinal stenosis
PLAN:
egd negative, will do colonoscopy thursday (hgb remained stable so likely old blood yesterday or distal bleeding.
clear liquids and prep today
monitor hgb which is stable
outpt f/u of cirrhosis
Subjective
Subjective
Date of Service: August 30, 2023
Pt had painless bleeding yesterday. thinks it may have been old blood but not sure
Objective
Data Reviewed
Laboratory Data:
Laboratory Results
08/30/23 05:51
08/30/23 05:51
Laboratory Results
PT 14.4 Sec (11.4-14.6) 08/27/23 09:02
INR 1.11 08/27/23 09:02
APTT 29.1 Sec (23.4-35.0) 08/27/23 09:02
Total Bilirubin 1.1 mg/dl (0.2-1.3) 08/28/23 02:45
AST 25 U/L (14-36) 08/28/23 02:45
ALT 17 U/L (0-35) 08/28/23 02:45
Alkaline Phosphatase 87 U/L (38-126) 08/28/23 02:45
Vital Signs and I&O:
Vital Signs
Temp Pulse Resp BP Pulse Ox
97.8 F 59 18 120/58 96
08/30/23 07:00 08/30/23 07:00 08/30/23 07:00 08/30/23 07:00 08/30/23 07:00
I&O
08/29/23 08/30/23 08/31/23
06:59 06:59 06:59
Intake Total 780 / 780 1440 / 1440
Balance 780 / 780 1440 / 1440
Physical Exam
Physical Exam
GI: Soft and Non Distended
[2023-08-30 11:00] VITALS: BP 124/56
--- NOTE | 2023-08-30 12:25 | W.PN.HOSP.TC ---
Today's Communication/Plan
-
Monitor vital signs and see plan
Colonoscopy tomorrow
Monitor hemoglobin
Assessment / Plan
Assessment / Plan
General: Well Nourished and No Apparent Distress
HEENT: Anicteric and Moist mucous membranes
Respiratory: Clear and Non Labored Respirations; No Wheezes
Cardiac: S1/S2 and Irregular Rhythm
GI: Soft, Non Tender and Non Distended
Genito-urinary: No Jon
Musculoskeletal: No Edema
Neuro: Awake, Alert, Oriented and AO x 3
Psych: Calm and Intact Judgment/Insight
Acute GI bleed
Acute blood loss anemia 2/2 above
do not believe her bleeding is exacerbated by baby aspirin
History of GI bleed
Trend hemoglobin; now 8.7
Transfuse hemoglobin less than 7
GI following
PPI
clears
s/p EGD 08/27 multiple gastric polyps, duodenal diverticulum. No bleeding noted. plan for colonoscopy wednesday 08/30
Permanent atrial fibrillation status post Watchman device
Not on anticoagulation due to history of GI bleed
per GI okay to restart aspirin, aspirin restarted
Not on any rate control
History of hypertension
Continue losartan
History of cirrhosis
Follow-up with GI outpatient
Hyperlipidemia
Continue statin
hx of TIA
DVTppx
SCD's
Full code
Anticipated Discharge: 24 - 48 hours
Subjective/Interval History
-
Date of Service: August 30, 2023
Denies abdominal pain
Objective Data
-
Labs:
Laboratory Results
08/30/23
05:51
WBC 3.6 L
Hgb 8.7 L
Hct 26.0 L
Plt Count 125 L
Sodium 136
Potassium 3.7
Chloride 107
Carbon Dioxide 28
BUN 14
Creatinine 0.6
Glucose 91
Calcium 9.3
Vital Signs:
Vital Signs
Temp Pulse Resp BP Pulse Ox
98.6 F 56 17 124/56 97
08/30/23 11:00 08/30/23 11:00 08/30/23 11:00 08/30/23 11:00 08/30/23 11:00
I&O
08/29/23 08/30/23 08/31/23
06:59 06:59 06:59
Intake Total 780 / 780 1440 / 1440
Balance 780 / 780 1440 / 1440
[2023-08-30 15:00] VITALS: BP 140/98
[2023-08-30] MEDS: CRESTOR 5 MG PO (17:19)
[2023-08-30] MEDS: NULYTELY SOLUTION 4 LITERS PO (17:36)
[2023-08-30 19:00] VITALS: BP 145/78
[2023-08-30] MEDS: COZAAR 25 MG PO (20:30)
[2023-08-30 23:45] VITALS: BP 133/67
[2023-08-31] VITALS (11 sets, daily range): BP systolic 12–157; BP diastolic 38–78; BMI 22.8
[2023-08-31 05:49] LABS: % Basophils 0.3 % (0-2); % Eosinophils 1.9 % (0-6); % Immature Granulocytes 0.2 % (0-0.5); % Lymphocytes 20.4 % (20.5-51.1); % Monocytes 11.7 % (1.7-9.3); % Neutrophils 65.5 % (42.2-75.2); Absolute Eosinophils 0.1 10^3/uL (0-0.7); Absolute Lymphocytes 1.2 10^3/uL (1.2-3.4); Absolute Monocytes 0.7 10^3/uL (0.1-0.6); Absolute Neutrophils 3.8 10^3/uL (1.4-6.5); Hematocrit 24.7 % (37.0-47.0); Hemoglobin 8.4 g/dL (12.0-16.0); Mean Corpuscular Hgb 33.3 pg (27.0-31.0); Mean Platelet Volume 8.7 fL (7.4-10.4); Nucleated Red Blood Cells % 0 %; Platelet Count 129 10^3/uL (130-400); Red Blood Cell Count 2.52 10^6/uL (4.20-5.40); Red Cell Dist. Width 12.8 % (11.5-14.5); White Blood Cell Count 5.7 10^3/uL (4.8-10.8)
[2023-08-31 06:14] LABS: Blood Urea Nitrogen 11 mg/dl (7-17); Carbon Dioxide 28 mmol/L (22-30); Chloride 106 mmol/L (98-107); Estimated Creatinine Clearance 56 ml/min; Glucose 91 mg/dl (70-99); Sodium 135 mmol/L (135-145); eGFR > 60.00
[2023-08-31] MEDS: NON-FORMULARY ITEM 1 DROP OPHTH ×2 (08:07→20:36)
[2023-08-31] MEDS: PROTONIX IV IV (08:10)
[2023-08-31] MEDS: ASPIR LOW (ENTERIC COATED) PO (08:11)
[2023-08-31] MEDS: TYLENOL PO (08:11)
[2023-08-31] MEDS: NSS (PRESERVATIVE FREE) IV (08:11)
--- NOTE | 2023-08-31 10:44 | W.PN.HOSP.TC ---
Today's Communication/Plan
-
Monitor vital signs and see plan
Plan for colonoscopy today
Monitor hemoglobin
Assessment / Plan
Assessment / Plan
General: Well Nourished and No Apparent Distress
HEENT: Anicteric and Moist mucous membranes
Respiratory: Clear and Non Labored Respirations; No Wheezes
Cardiac: S1/S2 and Irregular Rhythm
GI: Soft, Non Tender and Non Distended
Genito-urinary: No Ojn
Musculoskeletal: No Edema
Neuro: Awake, Alert, Oriented and AO x 3
Psych: Calm and Intact Judgment/Insight
Acute GI bleed
Acute blood loss anemia 2/2 above
do not believe her bleeding is exacerbated by baby aspirin
History of GI bleed
Trend hemoglobin; now 8.4
Transfuse hemoglobin less than 7
GI following
PPI
clears
s/p EGD 08/27 multiple gastric polyps, duodenal diverticulum. No bleeding noted. plan for colonoscopy wednesday 08/30
Permanent atrial fibrillation status post Watchman device
Not on anticoagulation due to history of GI bleed
per GI okay to restart aspirin, aspirin restarted
Not on any rate control
History of hypertension
Continue losartan
History of cirrhosis
Follow-up with GI outpatient
Hyperlipidemia
Continue statin
hx of TIA
DVTppx
SCD's
Full code
Anticipated Discharge: Within 24 hours
Subjective/Interval History
-
Date of Service: August 31, 2023
Denies pain
Objective Data
-
Labs:
Laboratory Results
08/31/23
05:24
WBC 5.7
Hgb 8.4 L
Hct 24.7 L
Plt Count 129 L
Sodium 135
Potassium 4.0
Chloride 106
Carbon Dioxide 28
BUN 11
Creatinine 0.6
Glucose 91
Calcium 9.0
Vital Signs:
Vital Signs
Temp Pulse Resp BP Pulse Ox
97.8 F 81 17 135/57 97
08/31/23 07:00 08/31/23 07:00 08/31/23 07:00 08/31/23 07:00 08/31/23 07:00
I&O
08/30/23 08/31/23 09/01/23
06:59 06:59 06:59
Intake Total 1440 / 1440 4000 / 4000
Balance 1440 / 1440 4000 / 4000
[2023-08-31] MEDS: ZOFRAN 4 MG IV (13:15)
--- NOTE | 2023-08-31 14:40 | W.PN.UPDATE ---
Update Note
Progress Note Update
Discussed with pt that she likely had a diverticular bleed initially as I saw the diverticulum with stigmata and treated it with epinephrine.
she should have a diet avoiding small nuts and seeds and as an outpatient high fiber.
She did have inflamed hemorrhoids and should use anusol HC. If they bleed (which I believe happened over the weekend) she can see colorectal
will sign off call with questions.
--- NOTE | 2023-08-31 17:19 | CM ---
gi bleed,sp egn,for colonoscopy,seen by therapy-she has no skillled needs.plan home with no needs.
[2023-08-31] MEDS: PROTONIX 40 MG PO (20:35)
[2023-08-31] MEDS: TYLENOL 1000 MG PO (20:36)
[2023-08-31] MEDS: ANUSOL HC 25 MG RECTAL (20:36)
[2023-08-31] MEDS: COZAAR 25 MG PO (20:44)
[2023-09-01 03:20] VITALS: BP 105/44
[2023-09-01 05:41] LABS: % Eosinophils 2.5 % (0-6); % Immature Granulocytes 0.3 % (0-0.5); % Lymphocytes 22.9 % (20.5-51.1); % Monocytes 14.8 % (1.7-9.3); % Neutrophils 58.5 % (42.2-75.2); Absolute Eosinophils 0.1 10^3/uL (0-0.7); Absolute Lymphocytes 0.9 10^3/uL (1.2-3.4); Absolute Monocytes 0.6 10^3/uL (0.1-0.6); Absolute Neutrophils 2.3 10^3/uL (1.4-6.5); Hematocrit 24.9 % (37.0-47.0); Hemoglobin 8.3 g/dL (12.0-16.0); Mean Corp Hgb Conc. 33.3 g/dL (33.0-37.0); Mean Corpuscular Hgb 33.2 pg (27.0-31.0); Mean Corpuscular Volume 99.6 fL (81.0-99.0); Mean Platelet Volume 8.5 fL (7.4-10.4); Nucleated Red Blood Cells % 0 %; Platelet Count 132 10^3/uL (130-400); White Blood Cell Count 3.9 10^3/uL (4.8-10.8)
[2023-09-01 06:00] VITALS: BMI 22.9
[2023-09-01 06:04] LABS: Blood Urea Nitrogen 20 mg/dl (7-17); Calcium 9.4 mg/dl (8.4-10.2); Carbon Dioxide 27 mmol/L (22-30); Chloride 103 mmol/L (98-107); Estimated Creatinine Clearance 48 ml/min; Glucose 108 mg/dl (70-99); Potassium 4.5 mmol/L (3.5-5.1); Sodium 133 mmol/L (135-145); eGFR > 60.00
[2023-09-01 07:00] VITALS: BP 98/54
[2023-09-01] MEDS: NON-FORMULARY ITEM 1 DROP OPHTH (07:51)
[2023-09-01] MEDS: ASPIR LOW (ENTERIC COATED) 81 MG PO (07:51)
[2023-09-01] MEDS: TYLENOL 1000 MG PO (07:51)
[2023-09-01] MEDS: PROTONIX 40 MG PO (07:51)
[2023-09-01 11:00] VITALS: BP 122/52
--- NOTE | 2023-09-01 11:19 | W.PN.HOSP.TC ---
Addendum entered and electronically signed by Robel Monahan MD 09/01/23 12:49:
Case discussed with GI. Pt can leave on Protonix 40mg PO daily.
Original Note:
Today's Communication/Plan
-
d/c
Assessment / Plan
Assessment / Plan
Gen: NAD, Awake and alert, NCAT
Eyes: EOMI, PERRLA, no scleral icterus.
Neck: supple.
CV: irreg/irreg, +S1/S2, no m/r/g.
Resp: CTAB, no rales, wheezes, or rhonchi.
Abd: +BS, soft, NT, ND
Skin: No rashes.
Neuro: CN 2-12 intact, non-focal.
Psych: Normal mood and affect.
Acute blood loss anemia due to acute lower GI bleed due to acute bleeding diverticulum and bleeding hemorrhoids:
-GI following
-s/p EGD 08/28/23 with multiple gastric polyps, duodenal diverticulum. No bleeding noted.
-08/31/23 colonoscopy: Diverticulosis in the entire examined colon. Diverticula with vessel in the descending colon. Tattooed. Injected. Bleeding hemorrhoids. No specimens collected.
Permanent atrial fibrillation:
-s/p Watchman device
-Not on anticoagulation due to history of GI bleed
-ASA restarted
Other problems:
Essential hypertension: cont ARB
h/o cirrhosis
Hyperlipidemia: cont statin
h/o TIA
FULL/SCDs
Was cleared for discharge on 08/31/23 but requested to stay overnight. Patient agreeable to discharge today. Medically clear for discharge.
Total time spent on d/c = 31 min. This included today's physical exam, progress note, review of laboratory and diagnostic data, preparation of discharge documents and prescriptions, and discussions about the pt's hospital course and discharge plan
with the patient and other medical center representative involved in the patient's care.
Anticipated Discharge: Today
Subjective/Interval History
-
Date of Service: September 01, 2023
No new complaints.
Objective Data
-
Labs:
Laboratory Results
09/01/23
05:23
WBC 3.9 L
Hgb 8.3 L
Hct 24.9 L
Plt Count 132
Sodium 133 L
Potassium 4.5
Chloride 103
Carbon Dioxide 27
BUN 20 H
Creatinine 0.7
Glucose 108 H
Calcium 9.4
Vital Signs:
Vital Signs
Temp Pulse Resp BP Pulse Ox
98.0 F 67 17 98/54 95
09/01/23 07:00 09/01/23 07:00 09/01/23 07:00 09/01/23 07:00 09/01/23 07:00
I&O
08/31/23 09/01/23 09/02/23
06:59 06:59 06:59
Intake Total 4000 / 4000 810 / 810
Balance 4000 / 4000 810 / 810
--- NOTE | 2023-09-01 13:36 | CM ---
CM met with pt
For d/c today
Discussed IMM
Has ride at d/c
Plan - home no needs
--- NOTE | 2023-09-02 16:39 | W.DCSUMMARY ---
Discharge Summary
Discharge Data
Date of Admission: 08/27/23
Date of Discharge: 09/01/23
-
Pending Results: No
Hospital Course
Primary diagnoses:
Acute blood loss anemia due to acute lower gastrointestinal bleed due to acute bleeding diverticulum and bleeding hemorrhoids
Secondary diagnoses:
Permanent atrial fibrillation s/p Watchman device
Essential hypertension
h/o cirrhosis
Hyperlipidemia
h/o transient ischemic attack
Consultants:
Gastroenterology
Imaging:
None
Hospital course: 78-year-old female who presented with a chief complaint of rectal bleeding as outlined in the H&P done on admission. Patient's hemoglobin on admission was 11.5 and was 8.3 and stable at the time of discharge. Patient was placed on
Protonix 40 mg twice daily. She was seen in consultation by GI. She underwent EGD on 08/28/23 that showed multiple gastric polyps, duodenal diverticulum.� No bleeding noted. She underwent colonoscopy on 08/31/23 which showed diverticulosis in the
entire examined colon. Diverticula with vessel in the descending colon. Tattooed. Injected. Bleeding hemorrhoids. No specimens collected. She was discharged in medically stable condition.
Discharge Plan
-
Patient Disposition: Home (Routine Discharge)
Discharge Diagnosis/Procedures: Acute blood loss anemia due to acute lower gastrointestinal bleed due to acute bleeding diverticulum and bleeding hemorrhoids
Condition: Good
Diet: Other diet
Additional Diets: Heart healthy
Activity: As tolerated
Driving Restrictions: As prior to admission
Bathing Restrictions: None
Blood Work: CBC and BMP in 1 week, prescription from PCP
Referrals:
Constanza Medel MD [Active] -
Jeramie Spring MD [Family Provider] - in less than 1 week
Prescriptions:
New
hydrocortisone acetate 25 mg Suppository
25 mg KS HS Qty: 24 0RF
pantoprazole [Protonix] 40 mg tablet,delayed release (DR/EC)
40 mg PO DAILY Qty: 30 0RF
Continued
acetaminophen 500 mg Tablet
1,000 mg PO BID
rosuvastatin 5 mg Tablet
5 mg PO Q48H@1800
Cyclosporine in [place] 0.1-0.25 % Drops
1 drp ophthalmic (eye) BID
Patient Comments:
both eyes
Rx Instructions:
BOTH EYES
metronidazole 0.75 % Cream
1 applic TOPICAL DAILY
aspirin 81 mg Tablet,Chewable
81 mg PO DAILY
furosemide 20 mg tablet
20 mg PO DAILYPRN PRN (Reason: weight gain, leg swelling)
clobetasol 0.05 % ointment
1 applic TOPICAL MOFR
losartan 25 mg tablet
25 mg PO HS
Discontinued
pantoprazole 40 mg Tablet,Delayed Release (Dr/Ec)
40 mg PO DAILY
Discharge Orders:
Discharge Patient (As Directed); Ordered 09/01/23
Ordered By: Robel Monahan
Discharge Date and Time
Discharge Date/Time: 09/01/23 14:53
== END 2023-09-01 14:53 | disposition home or self-care (01) | DRG 378 ==
LOC: 3 WEST ACU 11:04
PROVIDERS: Internal Medicine; Nurse Practitioner Family; Nurse Practitioner Gerontology; ADMITTING PHYSICIAN Internal Medicine; ATTENDING PHYSICIAN Internal Medicine; CONSULT PHYSICIAN Internal Medicine Gastroenterology; EMERGENCY PHYSICIAN Emergency Medicine; FAMILY PHYSICIAN Family Medicine
PROC: 0DJ08ZZ Inspection of Upper Intestinal Tract, Via Natural or Artificial Opening Endoscopic (ICD-10-PCS; 2023-08-28)
PROC: 3E0H8GC Introduction of Other Therapeutic Substance into Lower GI, Via Natural or Artificial Opening Endoscopic (ICD-10-PCS; 2023-08-31)
PROC: 0DJD8ZZ Inspection of Lower Intestinal Tract, Via Natural or Artificial Opening Endoscopic (ICD-10-PCS; 2023-08-31)
DX: K57.31 Diverticulosis of large intestine without perforation or abscess with bleeding (principal); D62 Acute posthemorrhagic anemia; I48.21 Permanent atrial fibrillation; I48.92 Unspecified atrial flutter; K63.3 Ulcer of intestine; K57.10 Diverticulosis of small intestine without perforation or abscess without bleeding; I50.9 Heart failure, unspecified; I11.0 Hypertensive heart disease with heart failure; I45.10 Unspecified right bundle-branch block; K74.60 Unspecified cirrhosis of liver; K31.819 Angiodysplasia of stomach and duodenum without bleeding; K64.9 Unspecified hemorrhoids; D69.6 Thrombocytopenia, unspecified; K31.7 Polyp of stomach and duodenum; D53.9 Nutritional anemia, unspecified; M48.00 Spinal stenosis, site unspecified; E78.00 Pure hypercholesterolemia, unspecified; Z88.8 Allergy status to other drugs, medicaments and biological substances; Z79.82 Long term (current) use of aspirin; Z90.49 Acquired absence of other specified parts of digestive tract; Z96.643 Presence of artificial hip joint, bilateral; Z95.818 Presence of other cardiac implants and grafts; Z86.73 Personal history of transient ischemic attack (TIA), and cerebral infarction without residual deficits; Z87.891 Personal history of nicotine dependence
CPT/HCPCS: 80048; 80053; 82607; 82728; 82746; 83540; 83550; 84466; 85014; 85018; 85025; 85610; 85730; 86850; 86900; 86901; 93005; 99285

== ENCOUNTER 2024-04-04 22:55 | Inpatient (IN) | payer OTHER, SELFPAY ==
[2024-04-04] VITALS (7 sets, daily range): BP systolic 102–165; BP diastolic 58–90; BMI 22.8
--- NOTE | 2024-04-04 20:20 | ED.GENMED ---
History of Present Illness
General
Chief Complaint: Rectal Bleeding
Source: patient and records
Time Seen by Provider: 04/04/24 20:10
History of Present Illness
History of Present Illness:
78-year-old female with past medical history of TIA, atrial fibrillation, CHF, hypertension, hyperlipidemia, previous GI bleeding which patient reports is related to internal hemorrhoids presenting to the emergency department for evaluation after
she had finished dinner around 7:00, felt as if she needed to have a bowel movement and then proceeded to go to the bathroom where she noticed a moderate amount of bright red blood and clots within her stool, patient became lightheaded/dizzy but
never lost consciousness, EMS stated there was a moderate amount of bloody stool/clots within the toilet bowl. Patient at present time states she is otherwise asymptomatic. Patient notes that back in August she had an upper and lower endoscopy
performed which is when they found the bleeding internal hemorrhoids and a small polyp which were taking care of. She does report that the GI bleeding had been an ongoing issue for many years with no resolution. Currently taking iron supplements
and notes that she believes she has a normal hemoglobin around 12-13. Patient denies any fevers, abdominal pain, nausea, vomiting. States this evening she had some macaroni and cheese, turkey meatballs and pumpkin bread.
Past History
Past History
ED Past Medical History: Arrthythmia, CHF, HTN, Valvular disease and Other (Diverticular bleed)
ED Past Surgical History: Cardiac (watchman), Cholecystectomy and Orthopedic (left elbow, right rotator cuff, bilateral hip replacement)
Social History
Tobacco: Non-smoker
Alcohol: None
Drug: None
Personal: Single
Living: alone
Employment: Retired
Review of Systems
Review of Systems
All Other Systems: ROS reviewed and negative except as documented in HPI and ROS
Phy Exam
Physical Exam
Physical Exam:
GENERAL: Alert , in no apparent distress
EYE: clear conjunctiva b/l
HEAD: NCAT
ENT: mmm.
CARDIAC: Regular rate and rhythm .
LUNGS: Clear breath sounds bilaterally, no acute respiratory distress, no wheezes/rales/rhonchi
ABDOMEN: Soft, without focal tenderness, no r/g, no cvat
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
NEUROLOGICAL: Alert and oriented
SKIN: Warm and dry, skin intact.
MUSCULOSKELETAL: well perfused.
PSYCH: Normal and appropriate interaction.
Scores
Heart Failure Risk
Heart Failure Risk Score: Not Applicable
Heart Score for Chest Pain Patients
STEMI patient?: Not applicable
Withdrawal Assessment of Alcohol
Withdrawal Assessment Completed?: Not applicable
Course
Orders/Labs/Results
Orders:
Orders
04/04/24 20:17
IV Insert/Care/Rem.- Treatment PRN
04/04/24 20:19
Type+Screen Urgent
Complete Blood Count/With Diff Urgent
Comprehensive Metabolic Panel Urgent
Ferritin Urgent
Comment: ADD ON
Iron Urgent
PTT Urgent
Prothrombin Time Urgent
Total Iron Binding Urgent
04/04/24 20:41
CT Angio Abd/Pelvis w/wo IV [CT Abd/pelvis Angio W/wo Iv] Urgent
Comment:
Reason For Exam: lower GI bleed
04/04/24 21:22
Add On- LAB Urgent
Tests Added?: ferritin
04/04/24 21:29
Blood Bank Products [* Blood Bank Products] Urgent
Blood Bank Products: *Packed RBC Leuko(PRBC's)
Quantity: 1
Transfuse Today: Yes
Reason: Bleeding
Abnormal Lab Results
04/04/24
20:19
RBC 3.60 L 10^6/uL
(4.20-5.40)
Hgb 11.9 L g/dL
(12.0-16.0)
Hct 35.3 L %
(37.0-47.0)
MCH 33.1 H pg
(27.0-31.0)
Monocytes % 9.7 H %
(1.7-9.3)
BUN 27 H mg/dl
(7-17)
Glucose 141 H mg/dl
(70-99)
Crossmatch IS Only See Detail
04/04/24 20:19
04/04/24 20:19
Vital Signs
Initial and Last Documented VS:
Initial Vital Signs
Temp Pulse Resp BP Pulse Ox
97.7 F 90 18 144/66 94
04/04/24 20:09 04/04/24 20:09 04/04/24 20:09 04/04/24 20:09 04/04/24 20:09
Last Documented Vital Signs
Temp Pulse Resp BP Pulse Ox
97.7 F 85 18 165/67 94
04/04/24 20:09 04/04/24 21:15 04/04/24 21:15 04/04/24 21:03 04/04/24 21:15
Hha consulted with Physician
Hha consulted with physician?: Yes
Name of Physician Consulted: Edna
MDM/Problems Addressed
Differential Diagnosis Includes:
hemorrhoidal bleeding, diverticular bleed, anemia, less concern for UGI bleed
MDM/Problems Addressed:
78-year-old female presenting to the emergency department for evaluation after she had a bowel movement and states it was mostly blood and clots. Patient lightheaded following this but notes she is otherwise asymptomatic and never lost
consciousness. Patient has extensive history of GI bleeding, reports this past August diagnosed with internal hemorrhoids by GI here. Currently patient is hemodynamically stable and in no acute distress. Exam is reassuring. Will check labs and
continue to monitor patient. If has any further bleeding will have low threshold to order CTA to evaluate any possible areas of active bleeding. Plan for admission for hemoglobin trending.
Chronic conditions affecting care: Other (Previous GI bleeding)
*Radiology
Radiology exam reviewed: radiology read reviewed
*Pulse Oximetry
Patient hypoxic: no
*Critical Care Note
Total Time (30-74mins, 75-104mins- exclusive of procedures): 35
comment:
Critical care statement: A total of 35 minutes of critical care time was provided for this patient. This includes management of unstable vital signs, evaluation of the patient at bedside, reviewing the patient's pertinent medical records, discussion
with consultants, review of old EKGs and review of pertinent medical records. This time with separate from time utilized to perform the aforementioned documented procedures
Data Reviewed
Review of Other/Old Records Reveals: Labs, Records and Discharge Summary
Source: patient, records and spouse
Comment
Comment:
8:40PM - notified by nursing staff that patient had another large amount of blood from rectum. STAT CTA abd/pelvis ordered with concern for active GI bleeding.
Patient Management
Discussion with other providers: Hospitalist and Access Developer
Escalation/DeEscalation of care consider admission/obs:
9:20 PM: Patient CTA findings noted for acute GI hemorrhage. Immidately notified GI and IR teams. Hospitalist team notified as well. GI agrees with IR consult. IR looking at scans. In meantime, patient was consented for PRBC. 1 unit ordered given
patient likely to have acute drop in H/H. Hospitalist team to admit
9:35 PM: IR team to come take patient for angio/embolization. Patient remains currently stable with normal HR and BP
ED Attending Note
-
Portions of this chart may have been created with voice recognition software.� Occasional wrong word or��sound alike� substitutions may have occurred due to the inherent limitations of voice recognition software.
Discharge Plan
Departure
Patient Disposition: Admit
Date of Disposition: 04/04/24
Time of Disposition: 21:37
Presentation/result/management discussed w/ accepting MD/DO: Hospitalist
Discharge Problem:
Acute gastrointestinal hemorrhage
Prescriptions:
No Action
acetaminophen 500 mg Tablet
1,000 mg PO BID
rosuvastatin 5 mg Tablet
5 mg PO Q48H@1800
Cyclosporine in Klarity 0.1-0.25 % Drops
1 drp ophthalmic (eye) BID
Patient Comments:
both eyes
Rx Instructions:
BOTH EYES
aspirin 81 mg Tablet,Chewable
81 mg PO DAILY
furosemide 20 mg tablet
20 mg PO DAILY
clobetasol 0.05 % ointment
1 applic TOPICAL MOFR
losartan 25 mg tablet
25 mg PO HS
pantoprazole [Protonix] 40 mg tablet,delayed release (DR/EC)
40 mg PO DAILY Qty: 30 0RF
Metamucil 3.4 gram/5.4 gram Powder
1.5 tbsp PO DAILY
Slow Fe 137 mg (45 mg iron) Tablet Extended Release
137 mg PO Q48H
Referrals:
Jeramie Spring MD [Family Provider] -
Interventions
Interventions:
*Risk Screen - Suicide Last Done: 04/04/24 20:09
*General Assessment Last Done: 04/04/24 20:09
*Neglect/Abuse Screening Last Done: 04/04/24 20:09
ED- Fall Risk Assessment Last Done: 04/04/24 20:57
*ED COVID-19 Vaccine History Last Done: 04/04/24 20:09
RB-Dflxmx-Adskmrttmn Assessment Last Done: 04/04/24 20:57
ED- Cardiac Assessment Last Done: 04/04/24 20:57
ED- Pulmonary Assessment Last Done: 04/04/24 20:57
Discharge Date and Time
Print Language: SERBIAN
[2024-04-04 20:25] LABS: % Basophils 0.5 % (0-2); % Eosinophils 2.6 % (0-6); % Immature Granulocytes 0.2 % (0-0.5); % Lymphocytes 32.7 % (20.5-51.1); % Monocytes 9.7 % (1.7-9.3); % Neutrophils 54.3 % (42.2-75.2); Absolute Eosinophils 0.1 10^3/uL (0-0.7); Absolute Lymphocytes 1.8 10^3/uL (1.2-3.4); Absolute Monocytes 0.5 10^3/uL (0.1-0.6); Hematocrit 35.3 % (37.0-47.0); Hemoglobin 11.9 g/dL (12.0-16.0); Mean Corp Hgb Conc. 33.7 g/dL (33.0-37.0); Mean Corpuscular Hgb 33.1 pg (27.0-31.0); Mean Corpuscular Volume 98.1 fL (81.0-99.0); Mean Platelet Volume 8.9 fL (7.4-10.4); Nucleated Red Blood Cells % 0 %; Platelet Count 137 10^3/uL (130-400); Red Cell Dist. Width 12.9 % (11.5-14.5); White Blood Cell Count 5.5 10^3/uL (4.8-10.8)
[2024-04-04 20:39] LABS: ALT (SGPT) 22 U/L (0-35); AST (SGOT) 33 U/L (14-36); Albumin 4.2 g/dl (3.5-5.0); Alkaline Phosphatase 107 U/L (38-126); Blood Urea Nitrogen 27 mg/dl (7-17); Calcium 9.8 mg/dl (8.4-10.2); Carbon Dioxide 26 mmol/L (22-30); Chloride 103 mmol/L (98-107); Estimated Creatinine Clearance 53 ml/min; Glucose 141 mg/dl (70-99); Iron 89 ug/dl (37-170); Potassium 3.9 mmol/L (3.5-5.1); Sodium 139 mmol/L (135-145); Total Bilirubin 0.8 mg/dl (0.2-1.3); Total Protein 6.5 g/dl (6.3-8.2); eGFR > 60.00
[2024-04-04 20:47] LABS: INR 1.14; PT 14.4 Sec (11.4-14.6)
[2024-04-04 20:48] LABS: Percent Saturation 28 % (20-50); Total Iron Binding Capacity 310 ug/dl (265-497)
--- NOTE | 2024-04-04 22:00 | HPS.HSE ---
Family Physician
-
Family Physician: Jeramie Spring
Chief Complaint
-
GI bleeding
History of Present Illness
78-year-old female past medical history of lower GI bleeding, permanent atrial fibrillation post watchman not on anticoagulation, hypertension, cirrhosis, hyperlipidemia, TIA, presenting with rectal bleeding. After she finished dinner she felt like
she needed to have a bowel movement and then she noticed that she had moderate amount of bright red blood clots within her stool and became lightheaded but never lost consciousness. There is a moderate amount of blood clots within the toilet bowl.
Patient feels like she is continuing to bleed at this time. Back in August she had EGD and colonoscopy performed which found bleeding internal hemorrhoids and a small polyp. He denies any further bleeding until today since that time. She reports
GI bleeding had been an ongoing issue for many years without resolution. She denies fevers, abdominal pain, nausea or vomiting.
Medical History
Past Medical History
Past Medical History: Reports Other ( lower GI bleeding, permanent atrial fibrillation post watchman not on anticoagulation, hypertension, cirrhosis, hyperlipidemia, TIA,)
Past Surgical History: Reports Other (Cardiac (watchman), Cholecystectomy and Orthopedic (left elbow, right rotator cuff, bilateral hip replacement))
Social History
Tobacco: Former Smoker
Alcohol: None
Drug: None
Family History
Family History: Not pertinent
Allergies / Home Medications
Allergies reflects when Allergies were last updated in [facility].
Home Medications with original date entered in [facility]
Allergy/Medication List:
Allergies
Allergy/AdvReac Type Severity Reaction Status Date / Time
alendronate sodium Allergy GI bleed Verified 04/04/24 20:18
[From Fosamax]
simvastatin [From Zocor] Allergy patient Verified 04/04/24 20:18
denies
this
allergy
Home Medications
acetaminophen 500 mg tablet 1,000 mg PO BID Pain 01/08/22
cyclosporine 0.1 %-chondroitin sulfate A sodium 0.25 % eye drops (Cyclosporine in Klarity) 1 drp ophthalmic (eye) BID Eye condition 01/08/22
rosuvastatin 5 mg tablet 5 mg PO Q48H@1800 High cholesterol 01/08/22
aspirin 81 mg chewable tablet 81 mg PO DAILY Blood Clot Prevention/Tx 08/27/23
clobetasol 0.05 % topical ointment 1 applic topical MOFR VUVLAR RASH 08/27/23
furosemide 20 mg tablet 20 mg PO DAILY weight gain, leg swelling 08/27/23
losartan 25 mg tablet 25 mg PO HS Blood Pressure 08/27/23
pantoprazole 40 mg tablet,delayed release (Protonix) 40 mg PO DAILY #30 tabs 09/01/23
ferrous sulfate 137 mg (45 mg iron) tablet,extended release (Slow Fe) 137 mg PO Q48H 04/04/24
psyllium husk 3.4 gram/5.4 gram oral powder (Metamucil) 1.5 tbsp PO DAILY 04/04/24
Review of Systems
-
History Source: Patient
A 12 point ROS was completed and negative except as noted: Yes
Constitutional: Reports No Symptoms
EENT: Reports No Symptoms
Respiratory: Reports No Symptoms
Cardiac: Reports No Symptoms
Abdomen/GI: Reports See HPI
: Reports No Symptoms
Musculoskeletal: Reports No Symptoms
Skin: Reports No Symptoms
Neurological: Reports No Symptoms
Endocrine: Reports No Symptoms
Hematologic/Lymphatic: Reports No Symptoms
Psych: Reports No Symptoms
Physical Exam
Vital Signs
Vital Signs
Temp Pulse Resp BP Pulse Ox
97.7 F 85 18 165/67 94
04/04/24 20:09 04/04/24 21:15 04/04/24 21:15 04/04/24 21:03 04/04/24 21:15
Physical Exam
General: Well Developed, Well Nourished and No Apparent Distress
HEENT: NormoCephalic, Moist mucous membranes and Atraumatic
Respiratory: Clear
Cardiac: S1/S2 and Regular Rhythm; No Murmur or Rub
GI: Soft, Non Tender, Non Distended and Normal Bowel Sounds; No Organomegaly
Rectal: Deferred by Provider
Musculoskeletal: No Clubbing, No Cyanosis and No Edema
Skin: No Rash
Neuro: Nonfocal/grossly intact
Laboratory Results
-
04/04/24 20:19
04/04/24 20:19
Laboratory Results
PT 14.4 Sec (11.4-14.6) 04/04/24 20:19
INR 1.14 04/04/24 20:19
APTT 28.0 Sec (23.4-35.0) 04/04/24 20:19
Total Bilirubin 0.8 mg/dl (0.2-1.3) 04/04/24 20:19
AST 33 U/L (14-36) 04/04/24 20:19
ALT 22 U/L (0-35) 04/04/24 20:19
Alkaline Phosphatase 107 U/L (38-126) 04/04/24 20:19
Data Reviewed
-
Lab Data: Labs Reviewed by me
Old Records: Reviewed
Impression/Plan
-
IMPRESSION:
PLAN:
# Active lower GI bleeding likely secondary to bleeding colonic diverticula noted previously
# History of bleeding hemorrhoids
-CTA abdomen shows acute gastrointestinal hemorrhage at the distal aspect of the hepatic flexure of the colon, without evidence of diverticulitis
-Hemoglobin 11.9 improved compared to 8.3 in August
-Colonoscopy from August shows scattered diverticula, single large mouth diverticula in the descending colon the vessel/ulceration that was injected with epinephrine as well as bleeding hemorrhoids
-Hold aspirin
-N.p.o.
-1 unit of blood transfusion
-IR to perform embolization
Permanent atrial fibrillation status post Watchman
-Not on anticoagulation
Essential hypertension
-Hold losartan
Hyperlipidemia
-Continue statin
History of TIA
-Hold aspirin
Lower extremity edema
-Hold Lasix
Former smoker
Full code
DVT prophylaxis SCDs
N.p.o.
[2024-04-04 22:33] LABS: Ferritin 53.1 ng/ml (11.1-264.0)
[2024-04-05] VITALS (46 sets, daily range): BP systolic 88–145; BP diastolic 39–88; BMI 22.9
--- NOTE | 2024-04-05 00:32 | W.PN.IRAD.PR ---
Procedure Note
-
Post angiography SMA, SMA branches, CAITLIN. Vessels to area of extrav prior CTA were opacified. Active contrast extravasation was not definitively identified. Questionable very small volume extrav on one SMA run which was not identified on any
subsequent SMA or SMA branch run. VSS throughout. 5 Fr Mynx closure device deployed at R CF arteriotomy site.
Of note, the CTA does also show persistence of the cluster of abnormal vessels at the fundus of the stomach (img [id number] series 501 of current CTA) reported on 2022 CTA examination. No active extravasation at this level on the current CTA.
--- NOTE | 2024-04-05 01:14 | PTCARENOTE ---
patient received from IRAD@100, returned to room. patient immediately had multiple large liquid dark bloody stools with clots. unit PRBC infusing without signs reaction. monitor afib. patent c/o nausea. abdominal cramping. right groin dressing
intact without signs hematoma or bleeding. palpable pedal pulse. Head Bucker LUMBER MARKER at bedside and updated. orders pending
[2024-04-05] MEDS: ZOFRAN 4 MG IV ×2 (01:49→06:52)
[2024-04-05 02:55] LABS: INR 1.26; PT 15.6 Sec (11.4-14.6)
--- NOTE | 2024-04-05 02:55 | PTCARENOTE ---
Addendum entered by Judie Perez RN 04/05/24 03:40:
copper roller handler printing BHANU updated with post transfusion HH
Original Note:
patient nauseated, pulse oximeter 88-90 on room air. medicated with zofran, oxygen applied. PRBC completed, labs sent. patient continues to have dark bloody liquid stools with clots per rectum. call zhang in reach. sleeping short periods
[2024-04-05 02:56] LABS: APTT 25.5 Sec (23.4-35.0)
[2024-04-05 03:00] LABS: % Basophils 0.5 % (0-2); % Eosinophils 0.9 % (0-6); % Immature Granulocytes 0.2 % (0-0.5); % Lymphocytes 19.8 % (20.5-51.1); % Monocytes 9.3 % (1.7-9.3); % Neutrophils 69.3 % (42.2-75.2); Absolute Eosinophils 0.1 10^3/uL (0-0.7); Absolute Lymphocytes 1.1 10^3/uL (1.2-3.4); Absolute Monocytes 0.5 10^3/uL (0.1-0.6); Absolute Neutrophils 3.9 10^3/uL (1.4-6.5); Blood Urea Nitrogen 26 mg/dl (7-17); Calcium 8.8 mg/dl (8.4-10.2); Carbon Dioxide 26 mmol/L (22-30); Chloride 108 mmol/L (98-107); Estimated Creatinine Clearance 48 ml/min; Glucose 159 mg/dl (70-99); Hematocrit 30.6 % (37.0-47.0); Hemoglobin 10.3 g/dL (12.0-16.0); Magnesium 1.9 mg/dl (1.6-2.3); Mean Corp Hgb Conc. 33.7 g/dL (33.0-37.0); Mean Corpuscular Hgb 32.3 pg (27.0-31.0); Mean Corpuscular Volume 95.9 fL (81.0-99.0); Mean Platelet Volume 9.2 fL (7.4-10.4); Nucleated Red Blood Cells % 0 %; Phosphorus 3.1 mg/dl (2.5-4.5); Platelet Count 121 10^3/uL (130-400); Potassium 4.2 mmol/L (3.5-5.1); Red Blood Cell Count 3.19 10^6/uL (4.20-5.40); Red Cell Dist. Width 14.7 % (11.5-14.5); Sodium 143 mmol/L (135-145); White Blood Cell Count 5.7 10^3/uL (4.8-10.8); eGFR > 60.00
[2024-04-05] MEDS: BENADRYL 25 MG IV (05:03)
--- NOTE | 2024-04-05 05:27 | PTCARENOTE ---
patient with episode severe nausea, dry heaving. heart rate 30, hypotensive briefly, then incontinent large amount dark bloody stool with large clots. Coremaker Experimental BOTTOM SANDER at bedside. heart rate up to 100's without intervention. atropine not given. stat
dose Benadryl given for nausea. unit PRBC initiated
[2024-04-05] MEDS: COMPAZINE 10 MG IV (07:04)
[2024-04-05] MEDS: FEOSOL PO (07:48)
[2024-04-05] MEDS: TYLENOL PO (07:48)
[2024-04-05] MEDS: PROTONIX PO (07:48)
--- NOTE | 2024-04-05 09:13 | CON.GI ---
Addendum entered and electronically signed by Tino Sam MD 04/05/24 15:43:
I saw and examined the patient.
The BUFFING MACHINE TENDER or PA's note was reviewed and I agree with the note.
Comment: 78 yo F here with PMH as below here with lower GIB. History of prior GIB as outlined below. CTA positive for HF bleed - d/w ER and IR, underwent attempted embolization last night unable to find bleed. In regards to the vessels in the
stomach this was seen in August with subsequent EGD negative.
No further bleeding since last night.
Suspect diverticular bleeding.
Trend Hb.
Patient will follow up [facility] Dr. Shrestha outpatient re: ? cirrhosis may benefit from fibroscan outpatient.
Addendum entered and electronically signed by BHANU Viera 04/05/24 10:44:
Pt with prior noted cirrhosis not seen current CTA, some mild low platelets-- OP follow up with Dr. Arenas to review.
Original Note:
Consultation
-
Date/Time Consultation Requested: 04/05/24129
Date/Time Consultation Performed: 04/05/2415
Requesting Provider: Afua Orozco MD
Performing Provider: BHANU Natarajan, Yuko Sam MD
Reason for Consultation: GI bleed
Medical History
Chief Complaint / HPI
Chief Complaint: GI bleed
History of Present Illness:
Pt is an 78yo presents with hx afib with prior ablation, watchman off anticoagulation on daily ASA, TIA, HTN, and spinal stenosis, CT with noted cirrhosis. She also has hx multiple GI bleeds with noted gastric AVM, hemorrhoids, diverticular
bleeding and noted likely AVM on CTA imaging. She now presents with recurrent GI bleeding passing large volume of burgundy red stools with clots.hbg stable 10-11 but given transfusions on admission.
She admits to increased nausea and mild crampy abdominal pain with stools. She also had chronic GERD on PPI daily. She otherwise denies dysphagia, vomiting, diarrhea, or constipation with metamucil use daily. No other NSAID than ASA.
PRIOR GI work up
[address] Mai with gastric AVM cauterization around 2014 per prior GI notes
[address] Montalvo with diverticulosis.
2014 Capsule incomplete and did not pass with HH.
admit with 2022 with diverticular bleed vs possible small focal AVM gastric wall vs IC valve also noted change of cirrhosis.
Dr. Marks in 2022 follow up abnormality in stomach
2023 - admit GI bleed -- CTA with neg but cluster of enhancing vascular structures involving the posterior-medial gastric wall in the fundal region These raise the possibility of small focal AVM versus angiodysplasia.
Small enhancing vessel associated with the cecum adjacent to the ileocecal valve . Cannot exclude angiodysplasia.
08/28/23 EGD ahmad- normal esphagus, multiple gastric polyps, duodenal diverticulum
08/31/23- colon ahmad- - Diverticulosis in the entire examined colon. - Diverticula with vessel in the descending colon. Tattooed, bleeding hemorrhoids
04/04/24 CTA There is acute gastrointestinal hemorrhage at the distal aspect of the hepatic flexure of the colon
04/04/24 angio neg but noted persistence of cluster of abnormal vessel in funduso stomach no active extravasion
Past Medical History
Past Medical History: Arrhythmias (afib, bradicardia ), CHF, CVA (prior TIA), HTN and Other (diverticular bleed, diverticulosis, HH with incomplete capusule, possible AVM gastric and IC vlave on CT 2022, hx prior gastric angioectasia with
cauterization by Dr. Mai in past, spinal stenosis, Lumbar DDD, possible LING, cirrhosis per CT)
Past Surgical History: Cardiac (watchman, aflutter ablation), Cholecystectomy, Orthopedic (elbow, right rotator cuff, b/l hip replacement ) and Other (cararact surgery)
Social History
Tobacco: Former Smoker
Alcohol: Other (prior social quit 2021 )
Drug: None
Living: Alone
Employment: Retired
Family History
Family History: Other (mother with colon CA in mother, sister with recent whipple for precancerous panc cells)
Allergies / Home Medications
Allergy/AdvReac Type Severity Reaction Status Date / Time
alendronate sodium Allergy GI bleed Verified 04/04/24 20:18
[From Fosamax]
simvastatin [From Zocor] Allergy patient Verified 04/04/24 20:18
denies
this
allergy
�Medication �Instructions �Recorded
acetaminophen 500 mg tablet 1,000 mg PO BID Pain 01/08/22
cyclosporine 0.1 %-chondroitin 1 drp ophthalmic (eye) BID Eye 01/08/22
sulfate A sodium 0.25 % eye drops condition
(Cyclosporine in [place])
rosuvastatin 5 mg tablet 5 mg PO Q48H@1800 High cholesterol 01/08/22
aspirin 81 mg chewable tablet 81 mg PO DAILY Blood Clot 08/27/23
Prevention/Tx
clobetasol 0.05 % topical ointment 1 applic topical MOFR VUVLAR RASH 08/27/23
furosemide 20 mg tablet 20 mg PO DAILY weight gain, leg 08/27/23
swelling
losartan 25 mg tablet 25 mg PO HS Blood Pressure 08/27/23
pantoprazole 40 mg tablet,delayed 40 mg PO DAILY #30 tabs 09/01/23
release (Protonix)
ferrous sulfate 137 mg (45 mg 137 mg PO Q48H Supplement 04/04/24
iron) tablet,extended release
(Slow Fe)
psyllium husk 3.4 gram/5.4 gram 1.5 tbsp PO DAILY Constipation 04/04/24
oral powder (Metamucil)
Review of Systems
-
History Source: Patient
Constitutional: Reports No Symptoms and Fatigue
EENT: Reports No Symptoms
Respiratory: Reports No Symptoms
Cardiac: Reports No Symptoms
Abdomen/GI: Reports Nausea and Bloody Stools (dark burgundy/black stool)
: Reports No Symptoms
Musculoskeletal: Reports No Symptoms
Skin: Reports No Symptoms
Neurological: Reports Dizzy
Endocrine: Reports No Symptoms
Hematologic/Lymphatic: Reports Bleeding
Vital Signs
Temp Pulse Resp BP Pulse Ox
97.9 F 76 16 117/62 94
04/05/24 08:14 04/05/24 08:30 04/05/24 08:14 04/05/24 08:30 04/05/24 08:30
Physical Exam
Exam
General: Well Developed, Well Nourished and No Apparent Distress
HEENT: Normocephalic and Anicteric
Respiratory: Clear
Cardiac: Regular Rhythm
GI: Soft, Non Tender and Non Distended
Rectal: Other (burgundy stool per ER)
Musculoskeletal: No Clubbing and No Cyanosis
Skin: Warm and Dry
Neuro: Awake, Alert and AO x 3
Psych: Calm
Results
WBC 5.7 10^3/uL (4.8-10.8) 04/05/24 02:10
Hgb 10.3 g/dL (12.0-16.0) L 04/05/24 02:10
Hct 30.6 % (37.0-47.0) L 04/05/24 02:10
MCV 95.9 fL (81.0-99.0) 04/05/24 02:10
Plt Count 121 10^3/uL (130-400) L 04/05/24 02:10
Absolute Neuts (auto) 3.9 10^3/uL (1.4-6.5) 04/05/24 02:10
PT 15.6 Sec (11.4-14.6) H 04/05/24 02:10
INR 1.26 04/05/24 02:10
APTT 25.5 Sec (23.4-35.0) 04/05/24 02:10
Sodium 143 mmol/L (135-145) 04/05/24 02:10
Potassium 4.2 mmol/L (3.5-5.1) 04/05/24 02:10
Chloride 108 mmol/L (98-107) H 04/05/24 02:10
Carbon Dioxide 26 mmol/L (22-30) 04/05/24 02:10
BUN 26 mg/dl (7-17) H 04/05/24 02:10
Creatinine 0.7 mg/dL (0.6-1.0) 04/05/24 02:10
Calcium 8.8 mg/dl (8.4-10.2) 04/05/24 02:10
Total Bilirubin 0.8 mg/dl (0.2-1.3) 04/04/24 20:19
AST 33 U/L (14-36) 04/04/24 20:19
ALT 22 U/L (0-35) 04/04/24 20:19
Alkaline Phosphatase 107 U/L (38-126) 04/04/24 20:19
PRIOR GI work up
[address] Mai with gastric AVM cauterization around 2014 per prior GI notes
[address] Montalvo with diverticulosis.
2014 Capsule incomplete and did not pass with HH.
admit with 2022 with diverticular bleed vs possible small focal AVM gastric wall vs IC valve also noted change of cirrhosis.
Dr. Marks in 2022 follow up abnormality in stomach
2023 - admit GI bleed -- CTA with neg but cluster of enhancing vascular structures involving the posterior-medial gastric wall in the fundal region These raise the possibility of small focal AVM versus angiodysplasia.
Small enhancing vessel associated with the cecum adjacent to the ileocecal valve . Cannot exclude angiodysplasia.
08/28/23 EGD ahmad- normal esphagus, multiple gastric polyps, duodenal diverticulum
08/31/23- colon ahmad- - Diverticulosis in the entire examined colon. - Diverticula with vessel in the descending colon. Tattooed, bleeding hemorrhoids
Assessment / Plan
-
Pt is an 78yo presents with hx afib with prior ablation, watchman off anticoagulation on daily ASA, TIA, HTN, and spinal stenosis, CT with noted cirrhosis. She also has hx multiple GI bleeds with noted gastric AVM, hemorrhoids, diverticular
bleeding and noted likely AVM on CTA imaging. She now presents with recurrent GI bleeding passing large volume of burgundy red stools with clots.hbg stable 10-11 but given transfusions on admission.
She admits to increased nausea, mild crampy pain and chronic GERD.
PRIOR GI work up
[address] Mai with gastric AVM cauterization around 2014 per prior GI notes
[address] Montalvo with diverticulosis.
2014 Capsule incomplete and did not pass with HH.
admit with 2022 with diverticular bleed vs possible small focal AVM gastric wall vs IC valve also noted change of cirrhosis.
Dr. Marks in 2022 follow up abnormality in stomach
2023 - admit GI bleed -- CTA with neg but cluster of enhancing vascular structures involving the posterior-medial gastric wall in the fundal region These raise the possibility of small focal AVM versus angiodysplasia.
Small enhancing vessel associated with the cecum adjacent to the ileocecal valve . Cannot exclude angiodysplasia.
08/28/23 EGD ahmad- normal esophagus, multiple gastric polyps, duodenal diverticulum
08/31/23- colon ahmad- - Diverticulosis in the entire examined colon. - Diverticula with vessel in the descending colon. Tattooed, bleeding hemorrhoids
04/04/24 CTA There is acute gastrointestinal hemorrhage at the distal aspect of the hepatic flexure of the colon
04/04/24 angio neg but noted persistence of cluster of abnormal vessel in fundus stomach no active extravasation
-recurrent GI bleeding
-CTA + bleeding in hepatic flexure
-hx diverticular bleed with noted vessel on diverticulum DC in 08/2023
-nausea
-anemia s/p transfusion
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
-diverticulosis
-changes of cirrhosis on prior CT 2022
- thrombocytopenia
other medical problems:
-Afib off AC
-prior ablation
-s/p watchman
-TIA
-HTN
-spinal stenosis
PLAN:
Etiology of bleeding related to diverticular bleeding, AVM but noted larger volume, vs other
s/p + CTA then neg angio
if continued bleeding consider colonoscopy--last colon in August with vessel in diverticulum with tattoo placed
trend hbg
transfuse as needed
2 large bore IV's
NPO
cont PPI
hold fiber supplement with active bleeding
remains in PO iron
cont antiemetics as needed
-
-
Thank you for consultation and allowing me to participate in the patient's care. Please call the conductor sleeping car GI physician during the after hours with any questions or concerns.
[2024-04-05 09:53] LABS: Hematocrit 30.5 % (37.0-47.0); Hemoglobin 10.5 g/dL (12.0-16.0)
--- NOTE | 2024-04-05 10:03 | PTCARENOTE ---
2nd unit of PRBC complete. Post infusion Hgb 10.5
Compazine effective for nausea. Pt resting
--- NOTE | 2024-04-05 11:15 | W.PN.HOSP.TC ---
Addendum entered and electronically signed by Hardeep Lyons MD 04/05/24 17:46:
acute blood loss anemia, likely source gi. s/p 1u prbc
-attempted IR embolization, unable to find bleed
-hgb now stable
admits to pain
appreciate input form gi
hold asa
afib on watchman, on asa
-hold asa, disucss with outpatient braiding machine operator if still neede
Original Note:
Today's Communication/Plan
-
Assessment / Plan
Assessment / Plan
Ms. Michelle Dumont is an 78yoF h afib s/p watchman (01/2022), HTN, cirrhosis, HLD, and lower GI bleeding admitted 04/04 for a lower GI bleed.
Active lower GI bleeding likely secondary to bleeding colonic diverticula
History of bleeding hemorrhoids
Anemia
- CTA abdomen: acute hemorrhage at the distal aspect of the hepatic flexure of the colon
- 1 unit pRBCs transfused
- Hb 10.5, stable
- hold ASA, fiber supplements
- NPO
- s/p Mynx closure (04/05). Tolerated procedure well.
- monitor for bleeds, cbc
- gi consulted
Permanent afib s/p watchman
- not on oral anticoagulation
HTN, HLD
- hold losartan
- cont statin
Hx TIA
- hold aspirin
BLLEE
- hold lasix
DVT prophylaxis
- SCDs
Code status: FULL CODE
Diet: NPO
Anticipated Discharge: > 48 hours
Subjective/Interval History
-
Date of Service: April 05, 2024
Ms. Michelle Dumont is an 78yoF h afib s/p watchman (01/2022), HTN, cirrhosis, HLD, and lower GI bleeding admitted 04/04 for a lower GI bleed. Recovering from IR Mynx closure. Several bloody stools since procedure. Denies diarrhea.
Objective Data
-
Labs:
Laboratory Results
04/05/24 04/05/24 04/05/24
01:32 02:10 09:43
WBC 5.7
Hgb Cancelled 10.3 L 10.5 L
Hct Cancelled 30.6 L 30.5 L
Plt Count 121 L
PT 15.6 H
INR 1.26
APTT 25.5
Sodium 143
Potassium 4.2
Chloride 108 H
Carbon Dioxide 26
BUN 26 H
Creatinine 0.7
Glucose 159 H
Calcium 8.8
04/05/24 04/05/24
12:00 18:00
WBC
Hgb Pending Pending
Hct Pending Pending
Plt Count
PT
INR
APTT
Sodium
Potassium
Chloride
Carbon Dioxide
BUN
Creatinine
Glucose
Calcium
Vital Signs:
Vital Signs
Temp Pulse Resp BP Pulse Ox
97.9 F 74 17 121/71 96
04/05/24 08:14 04/05/24 09:45 04/05/24 09:45 04/05/24 09:30 04/05/24 09:45
I&O
04/04/24 04/05/24 04/06/24
06:59 06:59 06:59
Intake Total 250 / 250 450 / 450
Output Total 200 / 200
Balance 50 / 50 450 / 450
Review of Systems
-
History Source: Patient
Constitutional: Reports No Symptoms
Respiratory: Reports No Symptoms
Cardiac: Reports No Symptoms
Abdomen/GI: Reports Abdominal Pain and Bloody Stools; Denies Vomiting
Physical Exam
-
HEENT: Normocephalic and Atraumatic
Respiratory: Clear to Auscultation
Cardiac: Regular Rhythm and S1/S2
GI: Soft, Nontender, Nondistended, Normal Bowel Sounds and No Hepatosplenomegaly
Musculoskeletal: No Clubbing, No Cyanosis and No Edema
Skin: Warm and Dry
Neuro: Awake and AO x 3
--- NOTE | 2024-04-05 11:47 | PTCARENOTE ---
No BMs so far this shift. Nausea resolved. Remains NPO. Resting on and off. All other assessments unchanged.
--- NOTE | 2024-04-05 12:34 | CON.INTV ---
Consultation
Consultation Request
Date/Time Consultation Requested: 04/05/2024
Date/Time Consultation Performed: 04/05/2024
Requesting Provider: Dr. Orozco
Performing Provider: Dr. Wisam Ortega
Reason for Consultation: Acute GI bleed
Medical History
-
History of Present Illness:
77-year-old woman with past medical history of recurrent GI bleed, permanent atrial fibrillation post watchman not on anticoagulation, hypertension, cirrhosis, hyperlipidemia, TIA presented to the emergency room complaining of bright red blood per
rectum. Similar to prior presentations here in the hospital.
Patient did report lightheadedness on admission. Back in August 2023 underwent upper endoscopy and colonoscopy demonstrated internal hemorrhoids and small polyps.
Numerous bloody bowel movement. Did not require vasopressors. Patient received 1 unit of packed red blood cells.
Due to brisk bleeding, underwent CT angiogram. Subsequently sent for interventional radiology for possible embolization. No evidence for active bleeding was observed.
No intervention was performed.
Here in the critical care unit for close monitoring due to active bleeding.
Past Medical History
Past Medical History: Other (See assessment and plan section)
Social History
Tobacco: Former Smoker
Alcohol: Occasional
Drug: None
Family History
Family History: Reviewed & Not Pertinent
Allergies / Home Medications
Allergies
Allergy/AdvReac Type Severity Reaction Status Date / Time
alendronate sodium Allergy GI bleed Verified 04/04/24 20:18
[From Fosamax]
simvastatin [From Zocor] Allergy patient Verified 04/04/24 20:18
denies
this
allergy
Home Medications
�Medication �Instructions �Recorded �Confirmed �Last Taken �Type
acetaminophen 500 mg tablet 1,000 mg PO BID Pain 01/08/22 04/04/24 04/04/24 History
cyclosporine 0.1 %-chondroitin 1 drp ophthalmic (eye) BID Eye 01/08/22 04/04/24 04/04/24 History
sulfate A sodium 0.25 % eye drops condition
(Cyclosporine in [place])
rosuvastatin 5 mg tablet 5 mg PO Q48H@1800 High cholesterol 01/08/22 04/04/24 04/03/24 History
aspirin 81 mg chewable tablet 81 mg PO DAILY Blood Clot 08/27/23 04/04/24 04/04/24 History
Prevention/Tx
clobetasol 0.05 % topical ointment 1 applic topical MOFR VUVLAR RASH 08/27/23 04/04/24 04/01/24 History
furosemide 20 mg tablet 20 mg PO DAILY weight gain, leg 08/27/23 04/04/24 04/04/24 History
swelling
losartan 25 mg tablet 25 mg PO HS Blood Pressure 08/27/23 04/04/24 04/03/24 History
pantoprazole 40 mg tablet,delayed 40 mg PO DAILY #30 tabs 09/01/23 04/04/24 04/04/24 Rx
release (Protonix)
ferrous sulfate 137 mg (45 mg 137 mg PO Q48H Supplement 04/04/24 04/04/24 04/04/24 History
iron) tablet,extended release
(Slow Fe)
psyllium husk 3.4 gram/5.4 gram 1.5 tbsp PO DAILY Constipation 04/04/24 04/04/24 04/03/24 History
oral powder (Metamucil)
Review of Systems
Vitals / Labs / Diagnostic Testing
Vital Signs
Temp Pulse Resp BP Pulse Ox
97.9 F 71 16 121/54 94
04/05/24 08:14 04/05/24 11:45 04/05/24 11:45 04/05/24 11:40 04/05/24 10:15
Lab Data
04/05/24 02:10
Laboratory Results
04/04/24 04/05/24
20:19 02:10
PT 14.4 15.6 H
INR 1.14 1.26
APTT 28.0 25.5
Diagnostic Testing:
Assessment
-
77-year-old woman with history of recurrent GI bleed of unclear source, atrial fibrillation, off anticoagulation status post Watchman procedure. Readmitted with bright red blood per rectum and anemia.
Lower GI bleed-recurrent: Possible diverticular bleed
prior possible gastric and IC value AVM on CTA imaging
Acute blood loss anemia anemia-symptomatic
Status post 1 unit of packed red blood cells
Conditions present prior admission:
History of prior GI bleed
08/28/23 EGD ahmad- normal esphagus, multiple gastric polyps, duodenal diverticulum
08/31/23- colon ahmad- - Diverticulosis in the entire examined colon. - Diverticula with vessel in the descending colon. Tattooed, bleeding hemorrhoids
Hypertension
Permanent atrial fibrillation
Status post Watchman device
Bilateral total knee arthroplasty
Left total hip arthroplasty
Former smoker
Plan recommendation:
Borderline hemodynamics. Has not required vasopressors. Patient very sleepy as she received Compazine for nausea.
Status post unit of packed red blood cells
Multiple bloody bowel movements, none since this morning.
Remains nauseous.
Continue ICU hemodynamic monitoring.
-
GI correspondence reviewed, this patient has undergone multiple endoscopies/colonoscopies in the past.
Initially positive CT angiogram, went to interventional radiology and angiogram was negative for ongoing bleeding. Perhaps bleeding stopped.
Last in August 2023. Possible diverticular bleed
Too large for peripheral line is in place.
At this point follow H&H-transfuse as necessary.
If there is ongoing bleeding then repeat colonoscopy will be necessary.
Has received 2 units of packed red blood cells
N.p.o.
IV fluids
Antiemetic
PPI
-
We will maintain ICU level of care for now.
-
Critical care statement: A total of 31 minutes of critical care time was provided for this patient today. This includes management of unstable vital signs, evaluation of the patient at bedside, reviewing the patient's pertinent medical records
including ventilator settings, arterial blood gases, radiographs, microbiology, laboratory evaluations and discussion with primary team, critical care nursing, and respiratory therapy.
--- NOTE | 2024-04-05 13:30 | PTCARENOTE ---
Very small burgundy stool.
No urine output so far this shift. Bladder scan 236ml. Pt reports no urge to void at this time. Purewick placed. Fine crackles noted at bilaterally bases posteriorly. Pt denies cough or SOB. SpO2 92-94% on room air
[2024-04-05 15:23] LABS: Hematocrit 29.5 % (37.0-47.0); Hemoglobin 10.3 g/dL (12.0-16.0)
--- NOTE | 2024-04-05 15:46 | CM ---
Patient seen bedside, initial assessment completed. Patient resides independently in a two story home, one small step to enter. Patient has a cane and right bed rail at home. Patient reports history of [facility] SNF in past, unsure facility
name. Patients PCP Jeramie Spring retired, current with [facility] (same practice). Patient pharmacy [facility]. Doctor entering room to meet with patient, CM will follow for all discharge planning needs.
Plan; home, watch for VN needs closer to discharge.
[2024-04-05] MEDS: CRESTOR 5 MG PO (18:00)
--- NOTE | 2024-04-05 18:00 | PTCARENOTE ---
Pt sleeping most of day. Reports feeling weak. Denies nausea. Tolerating meds and sips of water. No further BMs today. Voided 150ml around 1500 via purewick. Bladder scan 150ml at this time. All other assessments unchanged.
--- NOTE | 2024-04-05 20:15 | PTCARENOTE ---
Received pt from [facility] RN resting comfortably in bed. Pt AAOx3, no complaints of pain/nausea. Afib on the monitor, tolerating RA with SpO2 95%. + bowel sounds, pt states she's passing gas. Pt reports a significant decline in bloody stools today.
Purewick in place, ayde colored urine. Pt assisted with evening hygiene. Updated on POC for the evening. Pt without complaints, resting comfortably in bed awaiting next blood draw ~ 2100.
[2024-04-05] MEDS: TYLENOL 1000 MG PO (20:16)
[2024-04-05 21:34] LABS: Hematocrit 29.1 % (37.0-47.0); Hemoglobin 10.2 g/dL (12.0-16.0)
--- NOTE | 2024-04-05 23:20 | PTCARENOTE ---
Repeat Hgb stable. Pt remains without any bloody bowel movements thus far this shift. Assessment unchanged. Pt continues to offer no complaints.
[2024-04-06] VITALS (21 sets, daily range): BP systolic 107–161; BP diastolic 45–95; PULSE 70–77; O2SAT 96; BMI 23.0; BMI 23.1
--- NOTE | 2024-04-06 03:06 | PTCARENOTE ---
Assessment remains unchanged. Pt without complaints of pain/nausea. No bowel movements this shift. Pt slept soundly for most of the night, awakens easily to verbal stimuli.
[2024-04-06 03:21] LABS: Hematocrit 28.6 % (37.0-47.0); Hemoglobin 9.7 g/dL (12.0-16.0)
[2024-04-06 05:29] LABS: Hematocrit 28.4 % (37.0-47.0); Hemoglobin 9.6 g/dL (12.0-16.0); Mean Corp Hgb Conc. 33.8 g/dL (33.0-37.0); Mean Corpuscular Hgb 31.7 pg (27.0-31.0); Mean Corpuscular Volume 93.7 fL (81.0-99.0); Mean Platelet Volume 9.3 fL (7.4-10.4); Platelet Count 106 10^3/uL (130-400); Red Blood Cell Count 3.03 10^6/uL (4.20-5.40); Red Cell Dist. Width 16.4 % (11.5-14.5); White Blood Cell Count 5.5 10^3/uL (4.8-10.8)
[2024-04-06 05:55] LABS: Blood Urea Nitrogen 29 mg/dl (7-17); Calcium 8.8 mg/dl (8.4-10.2); Carbon Dioxide 26 mmol/L (22-30); Chloride 107 mmol/L (98-107); Estimated Creatinine Clearance 48 ml/min; Glucose 93 mg/dl (70-99); Potassium 4.4 mmol/L (3.5-5.1); Sodium 142 mmol/L (135-145); eGFR > 60.00
[2024-04-06] MEDS: PROTONIX 40 MG PO (07:43)
[2024-04-06] MEDS: TYLENOL 1000 MG PO ×2 (07:43→19:44)
--- NOTE | 2024-04-06 07:45 | W.PN.HOSP.TC ---
Addendum entered and electronically signed by Hardeep Lyons MD 04/06/24 14:17:
acute blood loss anemia, likely source gi. s/p 1u prbc
-attempted IR embolization, unable to find bleed
-hgb now stable
admits to pain
appreciate input form gi
hold asa
afib on watchman, on asa
-hold asa, disucss with outpatient filter changing technician if still needed
Original Note:
Today's Communication/Plan
-
Assessment / Plan
Assessment / Plan
Ms. Michelle Dumont is an 78yoF [facility] afib s/p watchman (01/2022), HTN, cirrhosis, HLD, and lower GI bleeding admitted 04/04 for a lower GI bleed.
Active lower GI bleeding likely secondary to bleeding colonic diverticula
History of bleeding hemorrhoids
Anemia
- CTA abdomen: acute hemorrhage at the distal aspect of the hepatic flexure of the colon
- 1 unit pRBCs transfused
- Hb 9.6, stable
- hold ASA, fiber supplements
- NPO
- s/p Mynx closure (04/05). Tolerated procedure well.
- monitor for bleeds, cbc
- gi consulted - f/u outpt
- transferred to tele
Permanent afib s/p watchman
- not on oral anticoagulation
HTN, HLD
- hold losartan
- cont statin
Hx TIA
- hold aspirin
BLLEE
- hold lasix
DVT prophylaxis
- SCDs
Code status: FULL CODE
Diet: clear liquids, advance as tolerated
Anticipated Discharge: Within 24 hours
Subjective/Interval History
-
Date of Service: April 06, 2024
Ms. Michelle Dumont is an 78yoF h afib s/p watchman (01/2022), HTN, cirrhosis, HLD, and lower GI bleeding admitted 04/04 for a lower GI bleed. No acute overnight events. No bloody stools.
Objective Data
-
Labs:
Laboratory Results
04/05/24 04/06/24 04/06/24
21:26 03:04 05:08
WBC 5.5
Hgb 10.2 L 9.7 L 9.6 L
Hct 29.1 L 28.6 L 28.4 L
Plt Count 106 L
Sodium 142
Potassium 4.4
Chloride 107
Carbon Dioxide 26
BUN 29 H
Creatinine 0.7
Glucose 93
Calcium 8.8
Vital Signs:
Vital Signs
Temp Pulse Resp BP Pulse Ox
98.1 F 61 15 136/52 94
04/06/24 03:36 04/06/24 06:45 04/06/24 06:45 04/06/24 06:14 04/06/24 03:00
I&O
04/05/24 04/06/24 04/07/24
06:59 06:59 06:59
Intake Total 250 / 250 500 / 500
Output Total 200 / 200 450 / 450
Balance 50 / 50 50 / 50
Review of Systems
-
History Source: Patient
All other systems: Reviewed and negative
Constitutional: Reports No Symptoms
Respiratory: Reports No Symptoms
Cardiac: Reports No Symptoms
Abdomen/GI: Reports No Symptoms
Genitourinary: Reports No Symptoms
Neuro: Reports No Symptoms
Physical Exam
-
General: No Apparent Distress and Comfortable
HEENT: Normocephalic, Atraumatic and Hearing Impaired
Respiratory: Clear to Auscultation
Cardiac: Regular Rhythm and S1/S2
GI: Soft, Nontender, Nondistended, Normal Bowel Sounds and No Hepatosplenomegaly
Musculoskeletal: No Clubbing, No Cyanosis and No Edema
Skin: Warm and Dry
Neuro: Awake and AO x 3
Psych: Calm
--- NOTE | 2024-04-06 09:17 | W.PN.GI.CBS2 ---
Addendum entered and electronically signed by Tino Sam MD 04/06/24 12:34:
I saw and examined the patient.
The PRECISION JIG GRINDER or PA's note was reviewed and I agree with the note.
Comment: 78 yo F with likely diverticular bleeding.
CTA + HF, angio neg.
Bleeding seems to have stopped.
Clears advance as tolerated.
If Hb stable, no further bleeding, ok dc GI POV.
Outpatient follow up for ? cirrhsois seen on imaging - pt to make appt with Dr. Brandt.
Original Note:
Today's Communication / Plan
-
Etiology of bleeding related to diverticular bleeding, AVM but noted larger volume, vs other
s/p + CTA then neg angio
bleeding now resolving
if recurrent bleeding consider colonoscopy--last colon in August with vessel in diverticulum with tattoo placed
hbg 10.2-- 9.7--9.6
advance to clears if no bleeding and stable low residue dinner
cont PPI PO daily
resume fiber supplement 2-3 weeks
remains in PO iron
OP follow up for work up for cirrhosis with serology/fibroscan etc. will add hepatitis panel -- normal albumin, INR and slight low platelet-- no signs of UGI bleeding, HE or ascites
Assessment / Plan
-
Pt is an 78yo presents with hx afib with prior ablation, watchman off anticoagulation on daily ASA, TIA, HTN, and spinal stenosis, CT with noted cirrhosis. She also has hx multiple GI bleeds with noted gastric AVM, hemorrhoids, diverticular
bleeding and noted likely AVM on CTA imaging. She now presents with recurrent GI bleeding passing large volume of burgundy red stools with clots.hbg stable 10-11 but given transfusions on admission.
She admits to increased nausea, mild crampy pain and chronic GERD.
PRIOR GI work up
[address] Mai with gastric AVM cauterization around 2014 per prior GI notes
[address] Montalvo with diverticulosis.
2014 Capsule incomplete and did not pass with HH.
admit with 2022 with diverticular bleed vs possible small focal AVM gastric wall vs IC valve also noted change of cirrhosis.
Dr. Marks in 2022 follow up abnormality in stomach
2023 - admit GI bleed -- CTA with neg but cluster of enhancing vascular structures involving the posterior-medial gastric wall in the fundal region These raise the possibility of small focal AVM versus angiodysplasia.
Small enhancing vessel associated with the cecum adjacent to the ileocecal valve . Cannot exclude angiodysplasia.
08/28/23 EGD ahmad- normal esophagus, multiple gastric polyps, duodenal diverticulum
08/31/23- colon ahmad- - Diverticulosis in the entire examined colon. - Diverticula with vessel in the descending colon. Tattooed, bleeding hemorrhoids
04/04/24 CTA There is acute gastrointestinal hemorrhage at the distal aspect of the hepatic flexure of the colon
04/04/24 angio neg but noted persistence of cluster of abnormal vessel in fundus stomach no active extravasation
-recurrent GI bleeding
-CTA + bleeding in hepatic flexure
-hx diverticular bleed with noted vessel on diverticulum DC in 08/2023
-nausea
-anemia s/p transfusion
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
-diverticulosis
-changes of cirrhosis on prior CT 2022
- thrombocytopenia
other medical problems:
-Afib off AC
-prior ablation
-s/p watchman
-TIA
-HTN
-spinal stenosis
PLAN:
Etiology of bleeding related to diverticular bleeding, AVM but noted larger volume, vs other
s/p + CTA then neg angio
bleeding now resolving
if recurrent bleeding consider colonoscopy--last colon in August with vessel in diverticulum with tattoo placed
hbg 10.2-- 9.7--9.6
advance to clears if no bleeding and stable low residue dinner
cont PPI PO daily
resume fiber supplement 2-3 weeks
remains in PO iron
OP follow up for work up for cirrhosis with serology/fibroscan etc.--will add hepatitis panel -- normal albumin, INR and slight low platelet-- no signs of UGI bleeding, HE or ascites
Subjective
Subjective
Date of Service: April 06, 2024
last stool 04/04, NPO feeling better
Objective
Data Reviewed
Laboratory Data:
Laboratory Results
04/06/24 05:08
04/06/24 05:08
Laboratory Results
PT 15.6 Sec (11.4-14.6) H 04/05/24 02:10
INR 1.26 04/05/24 02:10
APTT 25.5 Sec (23.4-35.0) 04/05/24 02:10
Phosphorus 3.1 mg/dl (2.5-4.5) 04/05/24 02:10
Magnesium 1.9 mg/dl (1.6-2.3) 04/05/24 02:10
Total Bilirubin 0.8 mg/dl (0.2-1.3) 04/04/24 20:19
AST 33 U/L (14-36) 04/04/24 20:19
ALT 22 U/L (0-35) 04/04/24 20:19
Alkaline Phosphatase 107 U/L (38-126) 04/04/24 20:19
Vital Signs and I&O:
Vital Signs
Temp Pulse Resp BP Pulse Ox
98.7 F 61 15 136/52 94
04/06/24 07:49 04/06/24 06:45 04/06/24 06:45 04/06/24 06:14 04/06/24 03:00
I&O
04/05/24 04/06/24 04/07/24
06:59 06:59 06:59
Intake Total 250 / 250 500 / 500
Output Total 200 / 200 450 / 450
Balance 50 / 50 50 / 50
Physical Exam
Physical Exam
HEENT: Anicteric and Moist mucous membranes
Cardiology: Normal Sinus Rhythm
Pulmonary: Clear
GI: Soft, Non Distended and Non Tender
Extremities: No Edema
Neuro: Non Focal
--- NOTE | 2024-04-06 10:01 | CM ---
CM following re: discharge planning.
Reviewed, pt's chart, met with pt.
Per Gastroenterology, pt most likely will be ready for discharge tomorrow. Pt is aware. Advancing diet. IMM reviewed, placed on chart, pt has a copy.
Pt reports she lives alone in a townhouse, her cousin has POA, has supportive sister who lives in [place], ambulates with a cane at baseline.
Pt expressed her desire to return back home when medically stable with [facility]. Pt stated shed is known to [facility] and she is very happy with their services.
PT and OT evaluations pending.
A referral to [facility] made.
Please fax discharge instructions to [facility] at [phone]
D/C plan: per pt desire, home with [facility] and family support. Pt stated she will have a ride to get home at discharge.
CM will follow with discharge plan updates as hospitalization progresses
--- NOTE | 2024-04-06 11:50 | W.PN.INTV ---
Today's Communication / Plan
Recommendations
Follow H&H
Continue PPI
Advance to clears
Transferred to telemetry
Sign off
Assessment
-
77-year-old woman with history of recurrent GI bleed of unclear source, atrial fibrillation, off anticoagulation status post Watchman procedure. Readmitted with bright red blood per rectum and anemia.
Lower GI bleed-recurrent: Possible diverticular bleed
prior possible gastric and IC value AVM on CTA imaging
Acute blood loss anemia anemia-symptomatic
Status post 1 unit of packed red blood cells
Conditions present prior admission:
History of prior GI bleed
08/28/23 EGD ahmad- normal esphagus, multiple gastric polyps, duodenal diverticulum
08/31/23- colon ahmad- - Diverticulosis in the entire examined colon. - Diverticula with vessel in the descending colon. Tattooed, bleeding hemorrhoids
Hypertension
Permanent atrial fibrillation
Status post Watchman device
Bilateral total knee arthroplasty
Left total hip arthroplasty
Former smoker
Plan recommendation:
Hemodynamically stable overnight
No further bowel movements
Hemoglobin stable
Abdominal exam is benign
Sitting out of bed comfortably
-
GI correspondence reviewed, this patient has undergone multiple endoscopies/colonoscopies in the past.
Initially positive CT angiogram, went to interventional radiology and angiogram was negative for ongoing bleeding. Perhaps bleeding stopped.
Last in August 2023. Possible diverticular bleed
Too large for peripheral line is in place.
At this point follow H&H-transfuse as necessary.
If there is ongoing bleeding then repeat colonoscopy will be necessary.
Has received 2 units of packed red blood cells-hemoglobin is stable
-
Continue PPI
Advised to clears
Antiemetics as needed
-
Transferred to telemetry
Critical care team will sign off.
Please call pulmonary if any respiratory issues arise
Subjective Dataa
Subjective Data
Date of Service:
Date of Service: April 06, 2024
Chief Complaint: Office Director Follow Up (Lower GI bleed)
Subjective:
Patient feels better
Denies abdominal pain
Denies dizziness sitting on a chair
No further BMs.
Review of Systems
Cardiopulmonary: Dyspnea (none at rest)
GI: Abdominal Pain (n) and Nausea
Neuro: Headache (n)
Objective Data
Data Reviewed
Vital Signs / I&O / Oxygen:
Vital Signs
Temp Pulse Resp BP Pulse Ox
98.7 F 72 15 107/95 94
04/06/24 07:49 04/06/24 09:30 04/06/24 09:30 04/06/24 09:00 04/06/24 03:00
Intake and Output
04/05/24 04/06/24 04/07/24
06:59 06:59 06:59
Intake Total 250 / 250 500 / 500 100 / 100
Output Total 200 / 200 450 / 450
Balance 50 / 50 50 / 50 100 / 100
SaO2 94
Nasal Cannula flow liters per 1
minute
Physical Exam
General: Comfortable
HEENT: Normocephalic
Cardiovascular: S1-S2
Respiratory: Non-Labored Respirations
GI: Soft and Non Distended
Neurology: Awake, Alert and No Motor Deficits
Labs/Micro/Reports
Lab Data
04/06/24 05:08
04/06/24 05:08
--- NOTE | 2024-04-06 15:51 | PTCARENOTE ---
Pt AAOx3. OOB in chair for 6hrs today. No BM. + flatus. Reported some abdominal cramping after clear liquid lunch tray. Discussed with pt and will continue with clear liquids for dinner tonight.
--- NOTE | 2024-04-06 18:16 | PTCARENOTE ---
One small burgundy stool this evening. Pt denies pain or nausea.
[2024-04-07] VITALS (7 sets, daily range): BP systolic 121–151; BP diastolic 51–68; PULSE 69; O2SAT 98; BMI 22.9
--- NOTE | 2024-04-07 04:01 | W.PN.UPDATE ---
Update Note
Progress Note Update
RN notified [employer], patient has mild temp, 100.0, 99,100.6. has hx of asymptomatic UTI per nursing. will order UA culture, if negative and still spiking fever may need blood culture, chest Xray. Lungs clear without any symptoms, Urine clear with out any
symptoms.
--- NOTE | 2024-04-07 04:05 | PTCARENOTE ---
pt with low grade fevers no symptoms. has had uti's in past w/out symptoms. clinic scheduler ordered ua/culture- - no episodes of bleeding over night- bp wnl- ax3- ambulates to br with walker x1-
[2024-04-07 04:50] LABS: Urine Albumin Trace (Neg - Trace); Urine Bilirubin Negative (Negative); Urine Character Clear (Clear); Urine Color Yellow; Urine Glucose Negative (Negative); Urine Ketone Trace (Negative); Urine Leukocyte Trace (Negative); Urine Nitrite Negative (Negative); Urine Occult Blood Negative (Negative); Urine Urobilinogen Negative (Neg - 1+)
[2024-04-07 06:39] LABS: Urine Bacteria Few (Negative); Urine Red Blood Cell 0-2 /HPF (0-2)
--- NOTE | 2024-04-07 07:24 | W.PN.HOSP.TC ---
Addendum entered and electronically signed by Hardeep Lyons MD 04/07/24 13:06:
feeling better but overnight did state that she had a fever and some abd pain
she has no UTI symtpoms
i informed her that she would be going for a CTAP with con to assess for intraabdominal infections
she is agreeable to this plan
if she has any more fevers would start her on IVATb and repeat blood cultures.
gi is still following
Original Note:
Today's Communication/Plan
-
Assessment / Plan
Assessment / Plan
Ms. Michelle Dumont is an 78yoF h afib s/p watchman (01/2022), HTN, cirrhosis, HLD, and lower GI bleeding admitted 04/04 for a lower GI bleed.
Active lower GI bleeding likely secondary to bleeding colonic diverticula
History of bleeding hemorrhoids
Anemia
- CTA abdomen: acute hemorrhage at the distal aspect of the hepatic flexure of the colon
- 1 unit pRBCs transfused
- Hb dropped overnight
- hold ASA, fiber supplements
- s/p Mynx closure (04/05). Tolerated procedure well.
- cta abdomen/pelvis pending
- ivf
- monitor for bleeds, cbc
- gi consulted - f/u outpt
- transferred to tele
Fever
- Hx asymptomatic UTI
- ua cx
- if ua cx clean, then consider blood cx
Permanent afib s/p watchman
- not on oral anticoagulation
HTN, HLD
- hold losartan
- cont statin
Hx TIA
- hold aspirin
BLLEE
- hold lasix
DVT prophylaxis
- SCDs
Code status: FULL CODE
Diet: clear liquids, advance as tolerated
Anticipated Discharge: 24 - 48 hours
Subjective/Interval History
-
Date of Service: April 07, 2024
Ms. Michelle Dumont is an 78yoF pmh afib s/p watchman (01/2022), HTN, cirrhosis, HLD, and lower GI bleeding admitted 04/04 for a lower GI bleed. Fever overnight (100.6). Hx asymptomatic UTI. +1 unformed bowel movement with several blood clots last night.
Objective Data
-
Labs:
Laboratory Results
04/07/24 04/07/24
06:47 06:48
WBC Pending
Hgb Pending
Hct Pending
Plt Count Pending
Sodium Pending
Potassium Pending
Chloride Pending
Carbon Dioxide Pending
BUN Pending
Creatinine Pending
Glucose Pending
Calcium Pending
Vital Signs:
Vital Signs
Temp Pulse Resp BP Pulse Ox
99.3 F 72 16 121/56 94
04/07/24 03:04 04/07/24 03:04 04/07/24 03:04 04/07/24 03:04 04/07/24 03:04
I&O
04/06/24 04/07/24 04/08/24
06:59 06:59 06:59
Intake Total 500 / 500 1180 / 1180
Output Total 450 / 450 300 / 300
Balance 50 / 50 880 / 880
Review of Systems
-
History Source: Patient
Constitutional: Reports Fever
Respiratory: Reports No Symptoms
Cardiac: Reports No Symptoms
Abdomen/GI: Reports Abdominal Pain (RUQ), Nausea and Bloody Stools; Denies Vomiting
Genitourinary: Denies Dysuria, Frequency, Flank Pain, Difficulty Voiding, Urgency or Bleeding
Physical Exam
-
HEENT: Normocephalic, Atraumatic and Hearing Impaired
Respiratory: Clear to Auscultation
Cardiac: Regular Rhythm and S1/S2
GI: Soft, Nondistended, Normal Bowel Sounds, Tender (RUQ) and No Hepatosplenomegaly
Musculoskeletal: No Clubbing, No Cyanosis and No Edema
Skin: Warm and Dry
Neuro: AO x 3
Psych: Calm
[2024-04-07 07:38] LABS: Hematocrit 25.2 % (37.0-47.0); Hemoglobin 8.7 g/dL (12.0-16.0); Mean Corp Hgb Conc. 34.5 g/dL (33.0-37.0); Mean Corpuscular Hgb 33.2 pg (27.0-31.0); Mean Corpuscular Volume 96.2 fL (81.0-99.0); Mean Platelet Volume 9.2 fL (7.4-10.4); Platelet Count 107 10^3/uL (130-400); Red Blood Cell Count 2.62 10^6/uL (4.20-5.40); White Blood Cell Count 5.2 10^3/uL (4.8-10.8)
[2024-04-07 08:08] LABS: Blood Urea Nitrogen 17 mg/dl (7-17); Carbon Dioxide 28 mmol/L (22-30); Chloride 104 mmol/L (98-107); Estimated Creatinine Clearance 48 ml/min; Glucose 101 mg/dl (70-99); Potassium 4.1 mmol/L (3.5-5.1); Sodium 138 mmol/L (135-145); eGFR > 60.00
[2024-04-07 08:28] LABS: COVID-19 Antigen Negative (Negative)
[2024-04-07] MEDS: TYLENOL 1000 MG PO ×2 (09:17→21:08)
[2024-04-07] MEDS: PROTONIX 40 MG PO (09:17)
[2024-04-07] MEDS: FEOSOL 325 MG PO (09:17)
[2024-04-07] MEDS: NSS 1000 IV (09:18)
[2024-04-07] MEDS: OMNIPAQUE 50 ML PO (09:28)
--- NOTE | 2024-04-07 11:50 | W.PN.GI.CBS2 ---
Addendum entered and electronically signed by Tino Sam MD 04/07/24 16:10:
I saw and examined the patient.
The BEHAVIORAL SCIENCES DEPARTMENT CHAIR or PA's note was reviewed and I agree with the note.
Comment: 78 yo F with likely diverticular bleeding.
CTA + HF, angio neg.
Bleeding seems to have stopped. Repeat Hb 8.9 from 8.7. Only saw blood with wiping.
OK for low residue diet.
Minimal RLQ discomfort CT reviewed no acute findings.
Fever per primary team.
Outpatient follow up with Dr. Shrestha with ? cirrhosis.
GI will sign off please call with ?s.
Addendum entered and electronically signed by BHANU Viera 04/07/24 12:36:
for repeat hbg at 1400---
hbg trend 9.7---9.6--8.7
Original Note:
Today's Communication / Plan
-
Etiology of bleeding related to diverticular bleeding, AVM but noted larger volume, vs other
s/p + CTA then neg angio
bleeding remains resolved except some blood with wipe ? hemorrhoids.-- add anusol as needed, rectal unable to do as pt seen in hallway after CT but hx prior hemorrhoidal bleeding
CT ordered for mild lower abdominal pain and tmax 100.6 overnight by medical team await results
UA pending
cont low residue diet-- resume slow increase of fiber in diet and Metamucil in 2-3 weeks
if recurrent bleeding consider colonoscopy--last colon in August with vessel in diverticulum with tattoo placed
hbg 10.2-- 9.7--9.6--8.7
cont PPI PO daily
remains in PO iron
OP follow up for work up for cirrhosis with serology/fibroscan etc.--will add hepatitis panel -- normal albumin, INR and slight low platelet-- no signs of UGI bleeding, HE or ascites
Assessment / Plan
-
Pt is an 78yo presents with hx afib with prior ablation, watchman off anticoagulation on daily ASA, TIA, HTN, and spinal stenosis, CT with noted cirrhosis. She also has hx multiple GI bleeds with noted gastric AVM, hemorrhoids, diverticular
bleeding and noted likely AVM on CTA imaging. She now presents with recurrent GI bleeding passing large volume of burgundy red stools with clots.hbg stable 10-11 but given transfusions on admission.
She admits to increased nausea, mild crampy pain and chronic GERD.
PRIOR GI work up
[address] Mai with gastric AVM cauterization around 2014 per prior GI notes
[address] Montalvo with diverticulosis.
2014 Capsule incomplete and did not pass with HH.
admit with 2022 with diverticular bleed vs possible small focal AVM gastric wall vs IC valve also noted change of cirrhosis.
Dr. Marks in 2022 follow up abnormality in stomach
2023 - admit GI bleed -- CTA with neg but cluster of enhancing vascular structures involving the posterior-medial gastric wall in the fundal region These raise the possibility of small focal AVM versus angiodysplasia.
Small enhancing vessel associated with the cecum adjacent to the ileocecal valve . Cannot exclude angiodysplasia.
08/28/23 EGD ahmad- normal esophagus, multiple gastric polyps, duodenal diverticulum
08/31/23- colon ahmad- - Diverticulosis in the entire examined colon. - Diverticula with vessel in the descending colon. Tattooed, bleeding hemorrhoids
04/04/24 CTA There is acute gastrointestinal hemorrhage at the distal aspect of the hepatic flexure of the colon
04/04/24 angio neg but noted persistence of cluster of abnormal vessel in fundus stomach no active extravasation
-recurrent GI bleeding likely diverticular
-CTA + bleeding in hepatic flexure
-hx diverticular bleed with noted vessel on diverticulum DC in 08/2023
-mild right lower pain
-low grade temp 04/06
-nausea -improved
-anemia s/p transfusion
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
-diverticulosis
-changes of cirrhosis on prior CT 2022
- thrombocytopenia
other medical problems:
-Afib off AC
-prior ablation
-s/p watchman
-TIA
-HTN
-spinal stenosis
PLAN:
Etiology of bleeding related to diverticular bleeding, AVM but noted larger volume, vs other
s/p + CTA then neg angio
bleeding remains resolved except some blood with wipe ? hemorrhoids.-- add anusol as needed, rectal unable to do as pt seen in hallway after CT but hx prior hemorrhoidal bleeding
CT ordered for mild lower abdominal pain and tmax 100.6 overnight by medical team await results
UA pending
cont low residue diet-- resume slow increase of fiber in diet and Metamucil in 2-3 weeks
if recurrent bleeding consider colonoscopy--last colon in August with vessel in diverticulum with tattoo placed
hbg 10.2-- 9.7--9.6--8.7
cont PPI PO daily
remains in PO iron
OP follow up for work up for cirrhosis with serology/fibroscan etc.--will add hepatitis panel -- normal albumin, INR and slight low platelet-- no signs of UGI bleeding, HE or ascites
Subjective
Subjective
Date of Service: April 07, 2024
blood tinged stools in 04/05, on low residue diet -- TMAX 100.6, mild right lower abdominal pain per nursing some blood noted but mostly with wiping
Objective
Data Reviewed
Laboratory Data:
Laboratory Results
04/07/24 06:48
04/07/24 06:47
Laboratory Results
PT 15.6 Sec (11.4-14.6) H 04/05/24 02:10
INR 1.26 04/05/24 02:10
APTT 25.5 Sec (23.4-35.0) 04/05/24 02:10
Phosphorus 3.1 mg/dl (2.5-4.5) 04/05/24 02:10
Magnesium 1.9 mg/dl (1.6-2.3) 04/05/24 02:10
Total Bilirubin 0.8 mg/dl (0.2-1.3) 04/04/24 20:19
AST 33 U/L (14-36) 04/04/24 20:19
ALT 22 U/L (0-35) 04/04/24 20:19
Alkaline Phosphatase 107 U/L (38-126) 04/04/24 20:19
Vital Signs and I&O:
Vital Signs
Temp Pulse Resp BP Pulse Ox
98.4 F 61 14 151/67 96
04/07/24 07:00 04/07/24 07:00 04/07/24 07:00 04/07/24 07:00 04/07/24 07:00
I&O
04/06/24 04/07/24 04/08/24
06:59 06:59 06:59
Intake Total 500 / 500 1180 / 1180
Output Total 450 / 450 300 / 300
Balance 50 / 50 880 / 880
Physical Exam
Physical Exam
HEENT: Anicteric and Moist mucous membranes
Cardiology: Normal Sinus Rhythm
Pulmonary: Clear
GI: Soft, Non Distended and Tender (very minimal right lower pain no rebound or guarding)
Extremities: No Edema
Neuro: Non Focal
[2024-04-07 14:42] LABS: Hematocrit 25.7 % (37.0-47.0); Hemoglobin 8.9 g/dL (12.0-16.0); Mean Corp Hgb Conc. 34.6 g/dL (33.0-37.0); Mean Corpuscular Hgb 33.6 pg (27.0-31.0); Mean Platelet Volume 9.1 fL (7.4-10.4); Platelet Count 114 10^3/uL (130-400); Red Blood Cell Count 2.65 10^6/uL (4.20-5.40); Red Cell Dist. Width 15.1 % (11.5-14.5); White Blood Cell Count 6.2 10^3/uL (4.8-10.8)
--- NOTE | 2024-04-07 14:53 | CM ---
Reviewed the chart notes and spoke with the patient at the bedside. CM continues to be available to patient/family and is monitoring medical plan for needs at discharge.
Plan: Discharge to home with [facility].
[facility] fax: [phone]
[2024-04-07] MEDS: CRESTOR 5 MG PO (17:28)
[2024-04-07 18:39] LABS: Hepatitis B Surface Antigen Negative (Negative)
[2024-04-07 18:57] LABS: Hepatitis B Core Ab, Total Negative (Negative); Hepatitis C Antibody Negative (Negative)
[2024-04-07 18:59] LABS: Hepatitis A Antibody, Total Positive (Negative)
[2024-04-07 19:01] LABS: Hepatitis A IgM Antibody Negative (Negative)
[2024-04-08] MEDS: NSS 1000 IV (00:22)
[2024-04-08 03:05] VITALS: BP 127/56
[2024-04-08 05:48] VITALS: BMI 23.6
[2024-04-08 07:16] LABS: Blood Urea Nitrogen 13 mg/dl (7-17); Calcium 8.8 mg/dl (8.4-10.2); Carbon Dioxide 26 mmol/L (22-30); Chloride 106 mmol/L (98-107); Estimated Creatinine Clearance 56 ml/min; Glucose 94 mg/dl (70-99); Potassium 4.3 mmol/L (3.5-5.1); Sodium 141 mmol/L (135-145); eGFR > 60.00
[2024-04-08 08:00] VITALS: BP 136/51
[2024-04-08] MEDS: PROTONIX 40 MG PO (09:11)
[2024-04-08] MEDS: TYLENOL 1000 MG PO ×2 (09:11→19:41)
--- NOTE | 2024-04-08 11:57 | W.PN.HOSP.TC ---
Addendum entered and electronically signed by Hardeep Lyons MD 04/08/24 13:57:
Repeat hemoglobin 1.4 g drop. Hemodynamically stable the. Therefore at this time we will keep her in house. Repeat CBC in the a.m. Notified GI. Likely will require scope on this admission.
If becomes hemodynamically unstable then repeat CT GI bleeding study and consult IR for embolization.
Addendum entered and electronically signed by Hardeep Lyons MD 04/08/24 13:30:
if she has any more fevers would start her on IVATb and repeat blood cultures.
gi signed off. will ask them to reengage as she was noted to have maroon colored stolled. hgb stable. will repeat in the evening
-i suspect this is old.
would appreciate gI input.
More than 30 minutes spent in discharge including
Final examination of the patient
Summarizing hospital stay
Instructions for continuing care to all relevant caregivers
Preparation of discharge records, prescriptions, and referral forms
Total time spent (in minutes): 32m
Original Note:
Today's Communication/Plan
-
Assessment / Plan
Assessment / Plan
Ms. Michelle Dumont is an 78yoF h afib s/p watchman (01/2022), HTN, cirrhosis, HLD, and lower GI bleeding admitted 04/04 for a lower GI bleed.
Active lower GI bleeding likely secondary to bleeding colonic diverticula
History of bleeding hemorrhoids
Anemia
- CTA abdomen: acute hemorrhage at the distal aspect of the hepatic flexure of the colon
- 1 unit pRBCs transfused
- Hb dropped overnight
- hold ASA, fiber supplements
- s/p Mynx closure (04/05). Tolerated procedure well.
- cta abdomen/pelvis: no acute processes, mildlyt irregular hepatic capsul
- monitor for bleeds, cbc
- gi consulted - f/u outpt
Fever
- Hx asymptomatic UTI
- ua cx
- if ua cx clean, then consider blood cx
Permanent afib s/p watchman
- not on oral anticoagulation
HTN, HLD
- hold losartan
- cont statin
Hx TIA
- hold aspirin
BLLEE
- hold lasix
DVT prophylaxis
- SCDs
Code status: FULL CODE
Diet: clear liquids, advance as tolerated
Anticipated Discharge: Today
Subjective/Interval History
-
Date of Service: April 08, 2024
Ms. Michelle Dumont is an 78yoF h afib s/p watchman (01/2022), HTN, cirrhosis, HLD, and lower GI bleeding admitted 04/04 for a lower GI bleed. Fever overnight (100.6). Continues having stools w maroon bloodclots
Objective Data
-
Labs:
Laboratory Results
04/08/24
05:57
Sodium 141
Potassium 4.3
Chloride 106
Carbon Dioxide 26
BUN 13
Creatinine 0.6
Glucose 94
Calcium 8.8
Vital Signs:
Vital Signs
Temp Pulse Resp BP Pulse Ox
98.0 F 64 18 136/51 98
04/08/24 08:00 04/08/24 08:00 04/08/24 08:00 04/08/24 08:00 04/08/24 10:44
I&O
04/07/24 04/08/24 04/09/24
06:59 06:59 06:59
Intake Total 1180 / 1180 2640 / 2640
Output Total 300 / 300
Balance 880 / 880 2640 / 2640
Review of Systems
-
History Source: Patient
Constitutional: Reports No Symptoms
EENT: Reports No Symptoms Reported
Respiratory: Reports No Symptoms
Abdomen/GI: Reports Diarrhea and Bloody Stools; Denies Nausea or Vomiting
Genitourinary: Reports No Symptoms
Musculoskeletal: Reports No Symptoms
Physical Exam
-
General: Well Developed and Well Nourished
HEENT: Normocephalic and Atraumatic
Respiratory: Clear to Auscultation
Cardiac: Regular Rhythm and S1/S2
GI: Soft, Nontender, Nondistended, Normal Bowel Sounds and No Hepatosplenomegaly
Musculoskeletal: No Clubbing, No Cyanosis and No Edema
Skin: Warm and Dry
Neuro: Awake and AO x 3
--- NOTE | 2024-04-08 12:50 | PTCARENOTE ---
This RN went in to notify pt of discharge order, pt stated she is 'uncomfortable leaving today and would like to stay another day to gain more strength.' This RN reached out to the [place] and resident, HARI being appealed with [facility] to notify GI to speak
with pt. No new orders at this time.
--- NOTE | 2024-04-08 12:53 | CM ---
Addendum entered by Anastacia Joseph RN 04/08/24 13:10:
Copy of Detailed Notice of Discharge provided to the patient.
Original Note:
Reviewed the chart notes and spoke with the patient at the bedside. IMM reviewed. Patient is appealing the discharge order. CM should the patient the [facility] phone number on the IMM sheet. CM continues to be available to patient/family and is
monitoring medical plan for needs at discharge.
Plan: Discharge to home with resumption of [facility]. Referral previous sent and accepted.
[facility] fax: [phone]
[2024-04-08 13:21] LABS: Hematocrit 22.1 % (37.0-47.0); Hemoglobin 7.5 g/dL (12.0-16.0); Mean Corp Hgb Conc. 33.9 g/dL (33.0-37.0); Mean Corpuscular Hgb 31.9 pg (27.0-31.0); Mean Platelet Volume 9.1 fL (7.4-10.4); Platelet Count 123 10^3/uL (130-400); Red Blood Cell Count 2.35 10^6/uL (4.20-5.40); Red Cell Dist. Width 15.2 % (11.5-14.5); White Blood Cell Count 6.6 10^3/uL (4.8-10.8)
--- NOTE | 2024-04-08 14:33 | W.PN.GI.CBS2 ---
Addendum entered and electronically signed by Raul Crandall MD 04/08/24 18:27:
I saw and examined the patient.
The PA's note was reviewed and I agree with the note.
Comment:
78 year old female with likely diverticular hemorrhage with +ve CTA but -ve angio. Hgb remained stable and diet resumed, GI signed off. Called back for re-eval given further drop in Hgb.
Continue to monitor Hgb - if continued bleeding is suspected then will consider colonoscopy.
Original Note:
Today's Communication / Plan
-
as per plan
Assessment / Plan
-
Pt is an 78yo presents with hx afib with prior ablation, watchman off anticoagulation on daily ASA, TIA, HTN, and spinal stenosis, CT with noted cirrhosis. She also has hx multiple GI bleeds with noted gastric AVM, hemorrhoids, diverticular
bleeding and noted likely AVM on CTA imaging. She now presents with recurrent GI bleeding passing large volume of burgundy red stools with clots.hbg stable 10-11 but given transfusions on admission.
She admits to increased nausea, mild crampy pain and chronic GERD.
PRIOR GI work up
[address] Mai with gastric AVM cauterization around 2014 per prior GI notes
[address] Montalvo with diverticulosis.
2014 Capsule incomplete and did not pass with HH.
admit with 2022 with diverticular bleed vs possible small focal AVM gastric wall vs IC valve also noted change of cirrhosis.
Dr. Marks in 2022 follow up abnormality in stomach
2023 - admit GI bleed -- CTA with neg but cluster of enhancing vascular structures involving the posterior-medial gastric wall in the fundal region These raise the possibility of small focal AVM versus angiodysplasia.
Small enhancing vessel associated with the cecum adjacent to the ileocecal valve . Cannot exclude angiodysplasia.
08/28/23 EGD ahmad- normal esophagus, multiple gastric polyps, duodenal diverticulum
08/31/23- colon ahmad- - Diverticulosis in the entire examined colon. - Diverticula with vessel in the descending colon. Tattooed, bleeding hemorrhoids
04/04/24 CTA There is acute gastrointestinal hemorrhage at the distal aspect of the hepatic flexure of the colon
04/04/24 angio neg but noted persistence of cluster of abnormal vessel in fundus stomach no active extravasation
-recurrent GI bleeding likely diverticular
-CTA + bleeding in hepatic flexure
-hx diverticular bleed with noted vessel on diverticulum DC in 08/2023
-mild right lower pain
-low grade temp 04/06
-nausea -improved
-anemia s/p transfusion
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
-diverticulosis
-changes of cirrhosis on prior CT 2022
- thrombocytopenia
other medical problems:
-Afib off AC
-prior ablation
-s/p watchman
-TIA
-HTN
-spinal stenosis
PLAN:
Etiology of bleeding related to diverticular bleeding, AVM but noted larger volume, vs other
repeat CBC for continuity later tonight then in the am.
transfuse if needed
s/p + CTA then neg angio. Did also have repeat CT with dye 04/07.
cont low residue diet-- resume slow increase of fiber in diet and Metamucil in 2-3 weeks
if recurrent bleeding consider colonoscopy--last colon in August with vessel in diverticulum with tattoo placed
hbg 10.2-- 9.7--9.6--8.7--8.9--7.5
cont PPI PO daily
remains in PO iron
OP follow up for work up for cirrhosis with serology/fibroscan etc.- -- normal albumin, INR and slight low platelet-- no signs of UGI bleeding, HE or ascites. Neg Hep panel, Immune to Hep A.
Subjective
Subjective
Date of Service: April 08, 2024
Patient tolerating low residue diet without any difficulty. No abdominal pain. Did have small maroon BM with clots yesterday however had large BM with clots today. Hgb did go from 8.9 to 7.5 in the past 24 hrs. Patient without any CP, SOB or
dizziness.
Objective
Data Reviewed
Laboratory Data:
Laboratory Results
04/08/24 13:11
04/08/24 05:57
Laboratory Results
PT 15.6 Sec (11.4-14.6) H 04/05/24 02:10
INR 1.26 04/05/24 02:10
APTT 25.5 Sec (23.4-35.0) 04/05/24 02:10
Phosphorus 3.1 mg/dl (2.5-4.5) 04/05/24 02:10
Magnesium 1.9 mg/dl (1.6-2.3) 04/05/24 02:10
Total Bilirubin 0.8 mg/dl (0.2-1.3) 04/04/24 20:19
AST 33 U/L (14-36) 04/04/24 20:19
ALT 22 U/L (0-35) 04/04/24 20:19
Alkaline Phosphatase 107 U/L (38-126) 04/04/24 20:19
Vital Signs and I&O:
Vital Signs
Temp Pulse Resp BP Pulse Ox
98.0 F 64 18 136/51 98
04/08/24 08:00 04/08/24 08:00 04/08/24 08:00 04/08/24 08:00 04/08/24 10:44
I&O
04/07/24 04/08/24 04/09/24
06:59 06:59 06:59
Intake Total 1180 / 1180 2640 / 2640 395 / 395
Output Total 300 / 300
Balance 880 / 880 2640 / 2640 395 / 395
Physical Exam
Physical Exam
HEENT: Anicteric
Cardiology: Irregular Rate/Rhythm
Pulmonary: Clear
GI: Soft, Non Distended, Non Tender and Normal Bowel Sounds
Neuro: Non Focal
[2024-04-08 14:54] LABS: Lipase 142 U/L (23-300)
[2024-04-08 16:00] VITALS: BP 143/69
[2024-04-08 19:48] VITALS: BP 128/54
[2024-04-08 23:24] LABS: Hematocrit 21.5 % (37.0-47.0); Hemoglobin 7.3 g/dL (12.0-16.0); Mean Corpuscular Hgb 32.4 pg (27.0-31.0); Mean Corpuscular Volume 95.6 fL (81.0-99.0); Mean Platelet Volume 8.7 fL (7.4-10.4); Platelet Count 112 10^3/uL (130-400); Red Blood Cell Count 2.25 10^6/uL (4.20-5.40); White Blood Cell Count 5.1 10^3/uL (4.8-10.8)
[2024-04-08 23:37] VITALS: BP 138/57
[2024-04-09] VITALS (7 sets, daily range): BP systolic 116–171; BP diastolic 48–77; O2SAT 99; BMI 23.5
[2024-04-09 07:20] LABS: Hematocrit 23.7 % (37.0-47.0); Mean Corp Hgb Conc. 33.8 g/dL (33.0-37.0); Mean Corpuscular Hgb 32.1 pg (27.0-31.0); Mean Corpuscular Volume 95.2 fL (81.0-99.0); Mean Platelet Volume 9.3 fL (7.4-10.4); Platelet Count 131 10^3/uL (130-400); Red Blood Cell Count 2.49 10^6/uL (4.20-5.40); Red Cell Dist. Width 15.1 % (11.5-14.5); White Blood Cell Count 4.7 10^3/uL (4.8-10.8)
--- NOTE | 2024-04-09 07:33 | W.PN.HOSP.TC ---
Addendum entered and electronically signed by Hardeep Lyons MD 04/09/24 12:48:
Presented with GI bleed. Bleeding study demonstrating splenic flex bleed. Was taken to IR for embolization however by the time they started procedure bleeding had resolved. Hemoglobin stabilized. On 04/08 again noted to have maroon-colored
stools with 1.5 g drop in hemoglobin. GI reconsulted recommended to monitor for now. Repeat CBC in the p.m. in a.m. Stable can be discharged home if recurs with a drop in hemoglobin and GI should plan for C-scope. If becomes hemodynamically
unstable then would repeat CT GI bleed study.
Original Note:
Today's Communication/Plan
-
Assessment / Plan
Assessment / Plan
Ms. Michelle Dumont is an 78yoF h afib s/p watchman (01/2022), HTN, cirrhosis, HLD, and lower GI bleeding admitted 04/04 for a lower GI bleed.
Active lower GI bleeding likely secondary to bleeding colonic diverticula
History of bleeding hemorrhoids
Anemia
- CTA abdomen: acute hemorrhage at the distal aspect of the hepatic flexure of the colon
- 1 unit pRBCs transfused
- Hb dropped overnight
- hold ASA, fiber supplements
- s/p Mynx closure (04/05). Tolerated procedure well.
- cta abdomen/pelvis: no acute processes, mildly irregular hepatic capsule
- monitor for bleeds, cbc
- gi consulted - f/u outpt for possible cirrhosis. consider colonoscopy if bleeding continues
- monitor - hematochezia resolved for one day, then resumed w drop in Hb requiring transfusion
Fever
- Hx asymptomatic UTI
- ua cx
- if ua cx clean, then consider blood cx
Permanent afib s/p watchman
- not on oral anticoagulation
HTN, HLD
- hold losartan
- cont statin
Hx TIA
- hold aspirin
BLLEE
- hold lasix
DVT prophylaxis
- SCDs
Code status: FULL CODE
Diet: low residue
Anticipated Discharge: 24 - 48 hours
Subjective/Interval History
-
Date of Service: April 09, 2024
Ms. Michelle Dumont is an 78yoF pmh afib s/p watchman (01/2022), HTN, cirrhosis, HLD, and lower GI bleeding admitted 04/04 for a lower GI bleed. Anemic last night. Bloody bowel movements have ceased
Objective Data
-
Labs:
Laboratory Results
04/08/24 04/09/24
23:18 06:31
WBC 5.1 4.7 L
Hgb 7.3 L 8.0 L
Hct 21.5 L 23.7 L
Plt Count 112 L 131
Sodium Pending
Potassium Pending
Chloride Pending
Carbon Dioxide Pending
BUN Pending
Creatinine Pending
Glucose Pending
Calcium Pending
Vital Signs:
Vital Signs
Temp Pulse Resp BP Pulse Ox
98.1 F 72 18 116/55 97
04/09/24 03:53 04/09/24 03:53 04/09/24 03:53 04/09/24 03:53 04/09/24 03:53
I&O
04/08/24 04/09/24 04/10/24
06:59 06:59 06:59
Intake Total 2640 / 2640 1395 / 1395
Balance 2640 / 2640 1395 / 1395
Review of Systems
-
History Source: Patient
All other systems: Reviewed and negative
Constitutional: Reports No Symptoms
Respiratory: Reports No Symptoms
Cardiac: Reports No Symptoms
Abdomen/GI: Denies Nausea, Vomiting, Diarrhea, Constipated or Bloody Stools
Genitourinary: Reports No Symptoms
Musculoskeletal: Reports No Symptoms
Neuro: Reports No Symptoms
Physical Exam
-
General: Well Developed and Well Nourished
HEENT: Normocephalic, Atraumatic and Moist Mucous Membranes
Respiratory: Clear to Auscultation
Cardiac: Regular Rhythm and S1/S2
GI: Soft, Nontender, Nondistended, Normal Bowel Sounds and No Hepatosplenomegaly
Musculoskeletal: No Clubbing, No Cyanosis and No Edema
Skin: Warm and Dry
Neuro: Awake and AO x 3
Psych: Calm
[2024-04-09 07:52] LABS: Blood Urea Nitrogen 15 mg/dl (7-17); Calcium 9.6 mg/dl (8.4-10.2); Carbon Dioxide 27 mmol/L (22-30); Chloride 105 mmol/L (98-107); Estimated Creatinine Clearance 56 ml/min; Glucose 96 mg/dl (70-99); Potassium 4.2 mmol/L (3.5-5.1); Sodium 142 mmol/L (135-145); eGFR > 60.00
[2024-04-09] MEDS: TYLENOL 1000 MG PO ×2 (08:11→21:05)
[2024-04-09] MEDS: FEOSOL 325 MG PO (08:11)
[2024-04-09] MEDS: PROTONIX 40 MG PO (08:11)
--- NOTE | 2024-04-09 11:41 | W.PN.GI.CBS2 ---
Today's Communication / Plan
-
GI s/o
Assessment / Plan
-
Pt is an 78yo presents with hx afib with prior ablation, watchman off anticoagulation on daily ASA, TIA, HTN, and spinal stenosis, CT with noted cirrhosis. She also has hx multiple GI bleeds with noted gastric AVM, hemorrhoids, diverticular
bleeding and noted likely AVM on CTA imaging. She now presents with recurrent GI bleeding passing large volume of burgundy red stools with clots.hbg stable 10-11 but given transfusions on admission.
She admits to increased nausea, mild crampy pain and chronic GERD.
Had some maroon colored clots/stool o/n. Hgb back up to 8 from 7.3 yesterday. No pRBC transfusion. This is likely residual blood making its way out. Her bleeding likely has stopped spontaneously. Recent bleeding scan showed extravasation in the
hepatic flexure area. Her previous colonoscopy from 08/2023 showed ulcerated diverticulum which was though a possible source of bleed in descending colon. Gross mismatch in the location suggests the source of bleeding diverticulum will be difficult
to isolate. In any case, do not feel repeat colonoscopy would be helpful and this was discussed with the pt. Continue with diet. GI will s/o, call with questions.
Total Time Spent with Patient (in minutes): 35
Subjective
Subjective
Date of Service: April 09, 2024
Had some maroon colored clots/blood in her stool o/n.
Objective
Data Reviewed
Laboratory Data:
Laboratory Results
04/09/24 06:31
Laboratory Results
PT 15.6 Sec (11.4-14.6) H 04/05/24 02:10
INR 1.26 04/05/24 02:10
APTT 25.5 Sec (23.4-35.0) 04/05/24 02:10
Phosphorus 3.1 mg/dl (2.5-4.5) 04/05/24 02:10
Magnesium 1.9 mg/dl (1.6-2.3) 04/05/24 02:10
Total Bilirubin 0.8 mg/dl (0.2-1.3) 04/04/24 20:19
AST 33 U/L (14-36) 04/04/24 20:19
ALT 22 U/L (0-35) 04/04/24 20:19
Alkaline Phosphatase 107 U/L (38-126) 04/04/24 20:19
Lipase 142 U/L (23-300) 04/08/24 05:57
Vital Signs and I&O:
Vital Signs
Temp Pulse Resp BP Pulse Ox
98.0 F 73 18 132/64 97
04/09/24 11:20 04/09/24 11:20 04/09/24 11:20 04/09/24 11:20 04/09/24 11:33
I&O
04/08/24 04/09/24 04/10/24
06:59 06:59 06:59
Intake Total 2640 / 2640 1395 / 1395
Balance 2640 / 2640 1395 / 1395
--- NOTE | 2024-04-09 14:57 | CM ---
CM recieved VM from a [facility] with [employer] requesting IM being faxed to [phone]. Did so as requested.
Recieved another call from Jerel with [employer] [phone] requesting DNOD be faxed as well.
Then recieved a VM from Roxanne with [employer] [phone] re: Case # [id number] that they recived notice, there is no lapse in coverage and this case will be closed.
CM reached out to attending who explains pt is not ready for dc today, symptomatic with ambulation and requires one more day of antibiotics.
[2024-04-09] MEDS: CRESTOR 5 MG PO (17:16)
[2024-04-09 23:57] LABS: Hematocrit 21.1 % (37.0-47.0); Hemoglobin 7.1 g/dL (12.0-16.0); Mean Corp Hgb Conc. 33.6 g/dL (33.0-37.0); Mean Corpuscular Hgb 32.4 pg (27.0-31.0); Mean Corpuscular Volume 96.3 fL (81.0-99.0); Mean Platelet Volume 8.8 fL (7.4-10.4); Platelet Count 130 10^3/uL (130-400); Red Blood Cell Count 2.19 10^6/uL (4.20-5.40); Red Cell Dist. Width 15.7 % (11.5-14.5); White Blood Cell Count 4.6 10^3/uL (4.8-10.8)
[2024-04-10] VITALS (10 sets, daily range): BP systolic 128–149; BP diastolic 54–73
--- NOTE | 2024-04-10 07:32 | W.PN.HOSP.TC ---
Addendum entered and electronically signed by Jacek Lyons MD 04/10/24 15:48:
I saw and evaluated the patient. I reviewed the resident�s note and agree with findings and plan as documented in the resident�s note.
Melena reason remains unclear suspected recurrent AVM vs diverticular bleed.
Acute blood loss anemia
-Patient have undergone repeat C-scope/EGD in the past with findings of diverticulosis/AVM/hemorrhoids.
-CT abdomen pelvis at admission showing possible bleeder at colonic hepatic flexure. IRAD did SMA angiography and did not find any active bleeders.
-Hemoglobin stabilizing at lower number, transfusing 1 unit PRBC for hemoglobin of 7.5 today
-Patient still have some melena although likely due to oral iron versus old blood coming out
-Plan for patient to be monitored overnight with possible discharge at home tomorrow.
Original Note:
Today's Communication/Plan
-
Assessment / Plan
Assessment / Plan
Ms. Michelle Dumont is an 78yoF pmh afib s/p watchman (01/2022), HTN, cirrhosis, HLD, and lower GI bleeding admitted 04/04 for a lower GI bleed.
Active lower GI bleeding likely secondary to bleeding colonic diverticula
History of bleeding hemorrhoids
Anemia
- CTA abdomen: acute hemorrhage at the distal aspect of the hepatic flexure of the colon
- 1 unit pRBCs transfused
- Hb dropped overnight
- hold ASA, fiber supplements
- s/p Mynx closure (04/05). Tolerated procedure well.
- cta abdomen/pelvis: no acute processes, mildly irregular hepatic capsule
- monitor for bleeds, cbc
- gi consulted - f/u outpt for possible cirrhosis. No indication for colonoscopy at this time.
- monitor - hematochezia resolved for one day, then resumed w drop in Hb requiring transfusion. Will monitor for recurrence
- Hb dropped to 7.1 last night, but increasing this am
Fever
- Hx asymptomatic UTI
- u/a no infection
- only fever on 04/06. Not concerned for infection at this time
Permanent afib s/p watchman
- not on oral anticoagulation
HTN, HLD
- hold losartan
- cont statin
Hx TIA
- hold aspirin
BLLEE
- hold lasix
DVT prophylaxis
- SCDs
Code status: FULL CODE
Diet: low residue
Anticipated Discharge: Within 24 hours
Subjective/Interval History
-
Date of Service: April 10, 2024
Ms. Michelle Dumont is an 78yoF h afib s/p watchman (01/2022), HTN, cirrhosis, HLD, and lower GI bleeding admitted 04/04 for a lower GI bleed. No bloody stools overnight. Overall feels better than yesterday.
Objective Data
-
Labs:
Laboratory Results
04/09/24 04/09/24 04/10/24
21:32 23:23 06:00
WBC Cancelled 4.6 L Pending
Hgb Cancelled 7.1 L Pending
Hct Cancelled 21.1 L Pending
Plt Count Cancelled 130 Pending
Vital Signs:
Vital Signs
Temp Pulse Resp BP Pulse Ox
97.1 F 69 18 133/55 96
04/10/24 03:26 04/10/24 03:26 04/10/24 03:26 04/10/24 03:26 04/10/24 03:26
I&O
04/09/24 04/10/24 04/11/24
06:59 06:59 06:59
Intake Total 1395 / 1395 1300 / 1300
Balance 1395 / 1395 1300 / 1300
Review of Systems
-
History Source: Patient
All other systems: Reviewed and negative
Constitutional: Reports No Symptoms
Respiratory: Reports No Symptoms
Cardiac: Reports No Symptoms
Abdomen/GI: Reports No Symptoms
Musculoskeletal: Reports No Symptoms
Physical Exam
-
General: Well Developed, Well Nourished and Comfortable
HEENT: Normocephalic, Atraumatic and Hearing Impaired
Respiratory: Clear to Auscultation and Non Labored Respirations
Cardiac: S1/S2 and Irregular Rhythm
GI: Soft, Nontender, Nondistended, Normal Bowel Sounds and No Hepatosplenomegaly
Musculoskeletal: No Clubbing, No Cyanosis and No Edema
Skin: Warm and Dry
Neuro: Awake and AO x 3
Psych: Calm
[2024-04-10] MEDS: TYLENOL 1000 MG PO ×2 (08:10→20:55)
[2024-04-10] MEDS: PROTONIX 40 MG PO (08:10)
[2024-04-10 08:36] LABS: Hematocrit 21.7 % (37.0-47.0); Hemoglobin 7.5 g/dL (12.0-16.0); Mean Corp Hgb Conc. 34.6 g/dL (33.0-37.0); Mean Corpuscular Hgb 34.1 pg (27.0-31.0); Mean Corpuscular Volume 98.6 fL (81.0-99.0); Platelet Count 134 10^3/uL (130-400); Red Cell Dist. Width 15.7 % (11.5-14.5); White Blood Cell Count 3.7 10^3/uL (4.8-10.8)
[2024-04-10] MEDS: COZAAR 25 MG PO (21:22)
[2024-04-11 03:14] VITALS: BP 127/62
[2024-04-11 07:05] LABS: Hematocrit 25.9 % (37.0-47.0); Hemoglobin 8.9 g/dL (12.0-16.0); Mean Corp Hgb Conc. 34.4 g/dL (33.0-37.0); Mean Corpuscular Hgb 32.4 pg (27.0-31.0); Mean Corpuscular Volume 94.2 fL (81.0-99.0); Mean Platelet Volume 8.8 fL (7.4-10.4); Platelet Count 152 10^3/uL (130-400); Red Blood Cell Count 2.75 10^6/uL (4.20-5.40); Red Cell Dist. Width 16.7 % (11.5-14.5); White Blood Cell Count 4.3 10^3/uL (4.8-10.8)
[2024-04-11 07:22] LABS: Blood Urea Nitrogen 18 mg/dl (7-17); Calcium 9.8 mg/dl (8.4-10.2); Carbon Dioxide 27 mmol/L (22-30); Chloride 104 mmol/L (98-107); Estimated Creatinine Clearance 56 ml/min; Glucose 96 mg/dl (70-99); Potassium 4.2 mmol/L (3.5-5.1); Sodium 140 mmol/L (135-145); eGFR > 60.00
--- NOTE | 2024-04-11 07:33 | W.PN.HOSP.TC ---
Today's Communication/Plan
-
Assessment / Plan
Assessment / Plan
Ms. Michelle Dumont is an 78yoF h afib s/p watchman (01/2022), HTN, cirrhosis, HLD, and lower GI bleeding admitted 04/04 for a lower GI bleed.
Active lower GI bleeding likely secondary to bleeding colonic diverticula
History of bleeding hemorrhoids
Anemia
- cta abdomen/pelvis: no acute processes, mildly irregular hepatic capsule
- gi consulted - f/u outpt for possible cirrhosis. No indication for colonoscopy at this time.
- repeat Hb stable. Stable for d/c
- repeat cbc 1
Fever
- Hx asymptomatic UTI
- u/a no infection
- only fever on 04/06. Not concerned for infection at this time
Permanent afib s/p watchman
- not on oral anticoagulation
HTN, HLD
- hold losartan
- cont statin
Hx TIA
- hold aspirin
BLLEE
- hold lasix
DVT prophylaxis
- SCDs
Code status: FULL CODE
Diet: low residue
Anticipated Discharge: Today
Subjective/Interval History
-
Date of Service: April 11, 2024
Ms. Michelle Dumont is an 78yo[address] [facility] afib s/p watchman (01/2022), HTN, cirrhosis, HLD, and lower GI bleeding admitted 04/04 for a lower GI bleed. No bloody stools, just dark due to iron supplements per pt. No acute overnight events.
Objective Data
-
Labs:
Laboratory Results
04/11/24
06:42
WBC 4.3 L
Hgb 8.9 L
Hct 25.9 L
Plt Count 152
Sodium 140
Potassium 4.2
Chloride 104
Carbon Dioxide 27
BUN 18 H
Creatinine 0.6
Glucose 96
Calcium 9.8
Vital Signs:
Vital Signs
Temp Pulse Resp BP Pulse Ox
97.8 F 66 16 127/62 94
04/11/24 03:14 04/11/24 03:14 04/11/24 03:14 04/11/24 03:14 04/11/24 03:14
I&O
04/10/24 04/11/24 04/12/24
06:59 06:59 06:59
Intake Total 1300 / 1300 1869
Balance 1300 / 1300 1869
Review of Systems
-
History Source: Patient
All other systems: Reviewed and negative
Constitutional: Reports No Symptoms
Respiratory: Reports No Symptoms
Cardiac: Reports No Symptoms
Abdomen/GI: Reports No Symptoms
Genitourinary: Reports No Symptoms
Musculoskeletal: Reports No Symptoms
Hematologic / Lymphatic: Reports No Symptoms
Physical Exam
-
General: Well Developed and Well Nourished
HEENT: Normocephalic, Atraumatic and Moist Mucous Membranes
Respiratory: Clear to Auscultation
Cardiac: Regular Rhythm and S1/S2
GI: Soft, Nontender, Nondistended, Normal Bowel Sounds and No Hepatosplenomegaly
Musculoskeletal: No Clubbing, No Cyanosis and No Edema
Skin: Warm and Dry
Neuro: Awake and AO x 3
Psych: Calm
[2024-04-11 07:40] VITALS: BP 143/62
[2024-04-11 08:00] VITALS: BMI 23.3
[2024-04-11] MEDS: TYLENOL 1000 MG PO (10:22)
[2024-04-11] MEDS: FEOSOL 325 MG PO (10:22)
[2024-04-11] MEDS: PROTONIX 40 MG PO (10:22)
[2024-04-11 11:50] VITALS: BP 127/53
--- NOTE | 2024-04-11 13:29 | W.DCSUMMARY ---
Discharge Summary
Discharge Data
Date of Admission: 04/04/24
Date of Discharge: 04/11/24
-
Pending Results: No
Hospital Course
Discharging Physician : Dr. Jacek Lyons, Dr. Tomasa Cornelius
Disposition : SNF
Primary care physician : Jeramie Spring MD
Principal Discharge diagnosis : Acute gastrointestinal hemorrhage
Chronic Discharge diagnosis : afib, HTN, cirrhosis, HLD
Hospital Course :
Ms. Michelle Dumont is an 78yoF pmh afib s/p watchman (01/2022), HTN, cirrhosis, HLD, and lower GI bleeding admitted 04/04 for a lower GI bleed. She had a bowel movement that was mostly blood and clots. She was lightheaded but otherwise asymptomatic. CTA
abdomen was significant for an acute hemorrhage at the distal aspect of the hepatic flexure of the colon. 1 pRBCs transfused in ED. S/p Mynx procedure (04/05), several bloody stools after. Had 1 episode of passing blood clots on 04/06. Some RUQ pain,
so repeat CTA. Remarkable for mildly irregular hepatic capsular contour and some left lobe hypertrophy suggesting possible cirrhosis, but no acute processes. This possible cirrhosis will be worked up outpatient w Dr. Shrestha. Hb dropped acutely, pt
held for observation. Received 1 unit pRBCs. Feels closer to regular self now. Hematochezia, abdominal pain has resolved. Hb has been stable since transfusion. Pt is hemodynamically stable, afebrile.
Will need repeat CBC 1 week after discharge. Follow up w PCP.
Important imaging findings :
04/04 Abdomen/pelvis CT: acute gastrointestinal hemorrhage at the distal aspect of the hepatic flexure of the colon
04/04 Vascular ultrasound: No active gastrointestinal hemorrhage identified at mesenteric angiography.
04/05 CXR: no acute cardiopulmonary processes. Hyperinflated lungs, cardiomegaly
04/07 Abdomen/pelvis CT: no acute intraabdominal process. Mildly irregular hepatic capsular contour and some L lobe hypertrophy suggesting possible cirrhosis.
Procedure findings :
10/7: No active bleeding. Mynx closure at R common femoral artery. Hemostasis w 5 min manual compression
Discharge Plan
-
Patient Disposition: Home (Routine Discharge)
Discharge Diagnosis/Procedures: Acute gastrointestinal hemorrhage
Condition: Good
Diet: Low Residue
Activity: As tolerated
Driving Restrictions: As prior to admission
Bathing Restrictions: OK to Shower
Blood Work: CBC in 1 week
Activity Restrictions/Additional Instructions:
Continue a low residue diet. Resume a slow increase of fiber in your diet and resume metamucil in 2-3 weeks.
Please follow up with Dr. Shrestha to investigate the incidental liver findings on CT. Her office phone is
Located at
[address]
[place]
[address]
Instructions: Gastrointestinal Bleeding (DC)
Referrals:
Jayant Shrestha MD [Active] - in one to two months (follow up with Dr. Shrestha or JOHN for cirrhosis work up. Call [phone] to schedule )
Jeramie Spring MD [Family Provider] - in one week
Prescriptions:
Continued
acetaminophen 500 mg Tablet
1,000 mg PO BID
rosuvastatin 5 mg Tablet
5 mg PO Q48H@1800
Cyclosporine in [place] 0.1-0.25 % Drops
1 drp ophthalmic (eye) BID
Patient Comments:
both eyes
Rx Instructions:
BOTH EYES
aspirin 81 mg Tablet,Chewable
81 mg PO DAILY
furosemide 20 mg tablet
20 mg PO DAILY
clobetasol 0.05 % ointment
1 applic TOPICAL MOFR
losartan 25 mg tablet
25 mg PO HS
pantoprazole [Protonix] 40 mg tablet,delayed release (DR/EC)
40 mg PO DAILY Qty: 30 0RF
Metamucil 3.4 gram/5.4 gram Powder
1.5 tbsp PO DAILY
Slow Fe 137 mg (45 mg iron) Tablet Extended Release
137 mg PO Q48H
Discharge Orders:
Discharge Patient (As Directed); Ordered 04/11/24
Ordered By: Jacek Lyons
Discharge Date and Time
Print Language: JORDANIAN
[2024-04-11 14:19] LABS: Hemoglobin 9.6 g/dL (12.0-16.0); Mean Corp Hgb Conc. 34.3 g/dL (33.0-37.0); Mean Corpuscular Hgb 33.4 pg (27.0-31.0); Mean Corpuscular Volume 97.6 fL (81.0-99.0); Mean Platelet Volume 8.7 fL (7.4-10.4); Platelet Count 164 10^3/uL (130-400); Red Blood Cell Count 2.87 10^6/uL (4.20-5.40); Red Cell Dist. Width 16.5 % (11.5-14.5); White Blood Cell Count 5.7 10^3/uL (4.8-10.8)
--- NOTE | 2024-04-11 14:44 | W.PN.UPDATE ---
Update Note
Progress Note Update
I saw and evaluated the patient. I reviewed the resident�s note and agree with findings and plan as documented in the resident�s note.
Melena reason remains unclear suspected recurrent AVM vs diverticular bleed.
Acute blood loss anemia
-Patient have undergone repeat C-scope/EGD in the past with findings of diverticulosis/AVM/hemorrhoids.
-CT abdomen pelvis at admission showing possible bleeder at colonic hepatic flexure. IR[facility] did SMA angiography and did not find any active bleeders
-Patient still have some melena although likely due to oral iron versus old blood coming out
-Repeat hemoglobin of 8.9 with follow-up showing hemoglobin of 9.6 in afternoon -tested on patient request
-Patient cleared to be discharged home at this point with follow-up with primary care physician
-Patient to follow-up CBC in 1 week outpatient basis
-Patient to follow-up with gastroenterology in office as well
--- NOTE | 2024-04-11 14:58 | CM ---
Reviewed the chart notes and spoke with the patient at the bedside. IMM signed. Patient's friend will transport the patient home.
Plan: Discharge to home with resumption of [facility]. Referral previous sent and accepted.
[facility] fax: [phone]
[2024-04-11 15:50] VITALS: BP 132/53
[2024-04-11 17:39] VITALS: BP 132/53
== END 2024-04-11 16:30 | disposition home health service (06) | DRG 378 ==
LOC: 2 NORTH 22:55
PROVIDERS: Hospitalist; Nurse Practitioner; Nurse Practitioner Adult Health; Nurse Practitioner Family; Nurse Practitioner Gerontology; Physician Assistant Medical; Radiology Vascular & Interventional Radiology; ADMITTING PHYSICIAN Hospitalist; ATTENDING PHYSICIAN Hospitalist; CONSULT PHYSICIAN Internal Medicine Critical Care Medicine; CONSULT PHYSICIAN Internal Medicine Gastroenterology; EMERGENCY PHYSICIAN Emergency Medicine; FAMILY PHYSICIAN Family Medicine
PROC: 30233N1 Transfusion of Nonautologous Red Blood Cells into Peripheral Vein, Percutaneous Approach (ICD-10-PCS; 2024-04-04)
PROC: B4141ZZ Fluoroscopy of Superior Mesenteric Artery using Low Osmolar Contrast (ICD-10-PCS; 2024-04-05)
DX: K57.51 Diverticulosis of both small and large intestine without perforation or abscess with bleeding (principal); D62 Acute posthemorrhagic anemia; I48.21 Permanent atrial fibrillation; E78.5 Hyperlipidemia, unspecified; I11.0 Hypertensive heart disease with heart failure; K74.60 Unspecified cirrhosis of liver; K55.21 Angiodysplasia of colon with hemorrhage; K64.8 Other hemorrhoids; D69.6 Thrombocytopenia, unspecified; I50.9 Heart failure, unspecified; K21.9 Gastro-esophageal reflux disease without esophagitis; Z96.643 Presence of artificial hip joint, bilateral; Z90.49 Acquired absence of other specified parts of digestive tract; Z86.79 Personal history of other diseases of the circulatory system; Z87.19 Personal history of other diseases of the digestive system; Z87.891 Personal history of nicotine dependence; Z88.8 Allergy status to other drugs, medicaments and biological substances; Z86.73 Personal history of transient ischemic attack (TIA), and cerebral infarction without residual deficits; Z95.818 Presence of other cardiac implants and grafts; Z79.82 Long term (current) use of aspirin; Z80.0 Family history of malignant neoplasm of digestive organs; Z11.52 Encounter for screening for COVID-19
CPT/HCPCS: 36246; 71045; 74174; 74177; 75726; 76937; 80048; 80053; 81003; 81015; 82728; 83540; 83550; 83690; 83735; 84100; 85014; 85018; 85025; 85027; 85610; 85730; 86704; 86708; 86709; 86803; 86850; 86900; 86901; 86920; 87340; 87811; 93005; 97116; 97163; 97530; 99291; C1769; C1887; P9016; Q9967

== ENCOUNTER → 2024-06-08 09:17 | Outpatient (REF) | payer OTHER, SELFPAY | LOC: HWRAD 09:17 | PROVIDERS: ATTENDING PHYSICIAN Physician Assistant; FAMILY PHYSICIAN Family Medicine | DX: R93.5 Abnormal findings on diagnostic imaging of other abdominal regions, including retroperitoneum (principal) | CPT/HCPCS: 76700 ==